=== PATIENT | male | born 1955 | race Caucasian/White ===

== ENCOUNTER 2018-05-05 18:07 | Observation (INO) | payer OTHER, SELFPAY ==
--- NOTE | 2018-05-05 | DI.MRI.S_ITS ---
PROCEDURE: MR STROKE Pre- and post-contrast brain MRI, non-contrast brain MR angiogram, pre- and postcontrast neck MR angiogram INDICATIONS: RLE extremity weakness / paresthesia, CVA r/o TECHNIQUE: Brain: Noncontrast axial T1 spin echo, axial T2 fast spin echo, sagittal and axial FLAIR, coronal T2 fast spin echo, axial gradient echo, axial diffusion and ADC through the brain. After the administration of contrast, axial 3D VIBE of the cranial vasculature and brain. Brain MRA: Non-contrast 3-D time of flight MR angiogram, with multiple cvapnot-jicxbehzp-woochxldib (MIP) reformats performed. Neck MRA: Axial and sagittal TruFISP through the neck. Coronal dynamic MR angiogram during administration of contrast in the arterial and venous phases, with 3-dimenstional otsvzgl-mympusahx-aenuejcyhf (MIP) reformats constructed from subtraction images. COMPARISON: None. FINDINGS: Image quality: Excellent. BRAIN: CSF spaces: Ventricles are normal in size and shape. Basal cisterns are patent. No extra-axial fluid collections. Brain: No intracranial bleeds or mass effects. Wylie-white matter interface is normal. Diffusion weighted images show no acute ischemic insults. Brainstem appears normal. Normal intravascular flow voids are present. No abnormal intracranial enhancement. Skull and face: Calvarial marrow signal is normal. Orbits appear normal. Sinuses: Sinuses and mastoids are clear except for minimal bilateral maxillary sinus mucosal thickening. BRAIN MR ANGIOGRAM: Anterior circulation: Intracranial internal carotid arteries are normal in size and enhancement. The flow within the paired anterior cerebral arteries is normal and symmetric. The flow within the middle cerebral arteries is normal and symmetric. The anterior communicating artery is seen. No stenoses, occlusions, or aneurysms. Posterior circulation: The visualized portions of the vertebral arteries demonstrate normal caliber, and join to form a normal appearing basilar artery. The flow within the posterior cerebral arteries is normal and symmetric. No stenoses, occlusions, or aneurysms. NECK MR ANGIOGRAM: Carotids: Great vessels demonstrate a conventional anatomy as they arise from the aortic arch. The origins of the common carotid arteries appear patent. The calibers and courses of both common carotid arteries are normal. The bifurcation regions appear normal bilaterally. The internal carotid arteries demonstrate normal course and caliber. Posterior circulation: The origins of the vertebral arteries appear patent. More superior portions of both vertebral arteries demonstrate normal course and caliber, and join to form a normal appearing basilar artery. Miscellaneous: Subclavian arteries appear patent. Pre-contrast images through the neck show no soft tissue abnormalities. IMPRESSION: BRAIN MRI: No acute ischemia. BRAIN MR ANGIOGRAM: Negative examination NECK MR ANGIOGRAM: Negative examination. No ICA stenosis. Dictated by: Navid Monroe M.D. on 05/06/2018 at 11:33 Approved by: Navid Monroe M.D. on 05/06/2018 at 11:41
[2018-05-05 18:24] VITALS: BP 131/76; PULSE 71; RESP 12; TEMP 36.8; O2SAT 95
--- NOTE | 2018-05-05 18:28 | DI.CT.S_ITS ---
PROCEDURE: CT HEAD/BRAIN WO CON INDICATIONS: right leg weakness x 2 days TECHNIQUE: Noncontrast 4.5 mm thick angled axial sections acquired from the foramen magnum to the vertex, with coronal and sagittal reformats. For radiation dose reduction, the following was used: automated exposure control, adjustment of mA and/or kV according to patient size. COMPARISON: None. FINDINGS: Image quality: Excellent. CSF spaces: Basal cisterns are patent. No extra-axial fluid collections. Ventricles are normal in size and shape. Brain: No midline shift. No intracranial masses or hemorrhage. Wylie-white matter interface is normal. Skull and face: Calvarium and visualized facial bones are intact, without suspicious lesions. Sinuses: Visualized sinuses and mastoids are clear. IMPRESSION: No acute disease, source of right leg weakness is not seen. Dictated by: Jose Veliz M.D. on 05/05/2018 at 19:18 Approved by: Jose Veliz M.D. on 05/05/2018 at 19:18
--- NOTE | 2018-05-05 18:49 | ED_ITS ---
HPI - Extremity Problem General Chief complaint: Extremity Problem,Nontraumatic Stated complaint: STATES NEEDS A ULTRASOUND Time Seen by Provider: 05/05/18 18:09 Source: patient Mode of arrival: ambulatory Limitations: no limitations History of Present Illness HPI Narrative: Patient is a 62-year-old male who presents with right leg numbness and weakness. He says it extends into his abdomen. He denies any back pain or injury. It started 2 days ago. 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 He started to notice some numbness in change in sensation in his right lower extremity only. He now is having some difficulty walking. He says the numbness extends into his abdomen is. No back pain no sciatic pain. He does have a history of lumbar fusion he says this feels nothing like that. He has no upper extremity symptoms or weakness. No speech difficulty or facial droop or other focal deficits. Related Data Home Medications Medication Instructions Recorded Confirmed No Known Home Medications 05/05/18 05/05/18 Review of Systems Review of Systems GENERAL: Denies chills, fatigue, malaise, fever, sweats, travel HEENT: Denies sinus pain, ear pain, sore throat, difficulty swallowing, neck pain RESPIRATORY: Denies dyspnea, cough, wheezing, hemoptysis, sputum. CARDIOVASCULAR: Denies chest pain, palpitations, orthopnea, edema GASTROINTESTINAL: Denies nausea, vomiting, abdominal pain, diarrhea, constipation, melena. : Denies dysuria, frequency, incontinence, hematuria, urinary retention, flank pain. MUSCULOSKELETAL: Denies weakness, joint pain, or bony pain SKIN: No rash, no erythema, no pruritus NEUROLOGIC: See HPI PSYCHIATRIC: No concerning psychosocial issues. 12 point review of systems is negative except for those stated above and HPI ROS Unobtainable: All systems reviewed & are unremarkable except as noted in HPI and below Constitutional Denies chills, Denies fever(s), Denies lethargy and Reports weakness ( right leg) Eyes Denies change in vision, Denies eye discharge, Denies irritation and Denies loss of vision ENT Ears, Nose, Mouth, and Throat: Denies change in voice, Denies neck pain and Denies sore throat Cardiovascular Denies dyspnea and Denies dyspnea on exertion Respiratory Denies cough, Denies dyspnea, Denies dyspnea on exertion and Denies wheezing Gastrointestinal Gastrointestinal: Denies abdominal pain, Denies change in bowel habits, Denies diarrhea, Denies nausea and Denies vomiting Genitourinary Denies hematuria, Denies flank pain, Denies urinary incontinence and Denies urinary urgency Musculoskeletal Denies neck pain, Reports numbness ( right leg) and Reports tingling ( right leg) Integumentary/Breasts Denies pruritus, Denies erythema, Denies rash and Denies wounds Neurologic Reports as per HPI, Denies loss of vision, Reports numbness ( right leg), Reports tingling ( right leg) and Reports weakness ( right leg) Allergic/Immunologic Denies wheezing [facility] Medical History Patient denies significant medical history (Acute) Surgical History History of lumbar fusion (Acute) Social History household members: significant other Smoking Status: Never smoker alcohol intake: current Social History household members: significant other Smoking Status: Never smoker alcohol intake: current Exam Initial Vital Signs Initial Vital Signs: Vital Signs Temperature 98.3 F 05/05/18 18:24 Pulse Rate 71 05/05/18 18:24 Respiratory Rate 12 05/05/18 18:24 Blood Pressure 131/76 05/05/18 18:24 Pulse Oximetry 95 05/05/18 18:24 GENERAL: overweight male alert and oriented x3 HEENT: Head atraumatic,EOMI, pupils reactive, face symmetric, neck is supple CARDIOVASCULAR: Regular rate and rhythm without murmurs, rubs or gallops. RESPIRATORY: Breath sounds equal bilaterally, no wheezes rales or rhonchi. ABDOMEN: Soft, nontender. Normoactive bowel sounds all 4 quadrants. No guarding or rebound. EXTREMITIES: Normal range of motion, no clubbing or edema. Neurovascularly intact. Strong distal pedal pulse foot is warm NEUROLOGICAL: Alert and oriented x4.Normal gait and speech. Cranial nerves II through XII grossly intact. Good gvmmef-tx-miwd, good ycoy-in-iyjy, strength equal bilaterally, no dysarthria or aphasia, decreased sensation on to light touch in right lower extremity and right abdomen, no visual changes, no facial droop right leg also noted to drip slowly but does not hit gurney SKIN: Warm, dry, no laceration, no petechiae, no rashes or lesions. Scores NIH Stroke Scale Level of Conciousness: Alert, keenly responsive Ask month/age: Answers both questions correctly. Open/close eyes, close hand: Performs both tasks correctly Best gaze horizontal: Normal Visual boyle: No visual loss Facial palsy: Normal symetrical movement Left arm drift: No drift for full 10 sec Right arm drift: No drift for full 10 sec Left leg drift: No drift for full 10 sec Right leg drift: Drifts down, not to bed Limb ataxia: Absent Sensory on face/arms/legs: Mild to moderate sensory loss, can tell touch Best language: No aphasia, normal Dysarthria: Normal Extinction or inattention: No abnormality Total NIH Stroke scale score: 2 Course Orders Ordered: ED Orders 05/05/18 18:28 CT head/brain wo con Stat EKG-12 Lead Stat 05/05/18 18:40 Complete Blood Count AUTO DIFF Stat Comprehensive Metabolic Panel Stat Partial Thromboplastin Time Stat Prothrombin Time INR Stat Troponin & CK Cardiac Panel Stat Discontinued Medications Aspirin (Aspirin Chew) 324 mg PO NOW ONE Stop: 05/05/18 19:59 Last Admin: 05/05/18 20:00 Dose: 324 mg Vital Signs - 8 hr 05/05/18 18:24 05/05/18 19:00 05/05/18 19:42 Temperature 98.3 F Pulse Rate 71 72 61 Respiratory Rate 12 17 15 Blood Pressure 131/76 Blood Pressure [Right Arm] 130/72 137/72 Pulse Oximetry 95 98 96 MDM - Extremity (Nontraumatic) Lab Data Result diagrams: 05/05/18 18:40 05/05/18 18:40 Lab Results 05/05/18 05/05/18 05/05/18 Range/Units 18:40 18:40 18:40 WBC 7.4 (4.5-11.0) X10^3/uL RBC 5.43 (4.5-5.9) X10^6/uL Hgb 16.2 (13.5-17.5) g/dL Hct 48.6 (41-53) % MCV 89.5 (80-100) fL MCH 29.9 (26-34) PG MCHC 33.4 (30-36) % RDW 13.2 (11.6-14.8) % Plt Count 182 (150-400) X10^3/uL Neut % (Auto) 62.0 (50-75) % Lymph % (Auto) 23.2 L (25-40) % [place] % (Auto) 10.5 (3-14) % Eos % (Auto) 3.7 (2-4) % Baso % (Auto) 0.6 (0-2) % Neut # (Auto) 4600 (4676-1949) /uL Lymph # (Auto) 1700 (1054-2106) /uL [place] # (Auto) 800 (0-900) /uL Eos # (Auto) 300 (0-450) /uL Baso # (Auto) 0 (0-100) /uL PT 11.5 (10.1-12.7) SECONDS INR 1.0 (0.9-1.3) APTT 36 (26.4-36.2) SECONDS Sodium 141 (137-145) mmol/L Potassium 4.1 (3.4-5.1) mmol/L Chloride 103 (98-107) mmol/L Carbon Dioxide 28 (22-32) mmol/L BUN 23 H (9-20) mg/dL Creatinine 1.00 (0.66-1.25) mg/dL Estimated GFR > 60.0 (>60) mL/min BUN/Creatinine Ratio 23.0 H (6-22) Glucose 107 (80-110) mg/dL Calcium 9.6 (8.4-10.2) mg/dL Total Bilirubin 0.7 (0.2-1.3) mg/dL AST 41 (17-59) IU/L ALT 43 (21-72) IU/L Alkaline Phosphatase 49 (38-126) U/L Total Creatine Kinase 243 H (55-170) U/L CK-MB (CK-2) 3.28 H (<2.37) ng/mL CK-MB (CK-2) Rel Index 1.3 L (1.5-5.0) % Troponin I < 0.012 (0.01-0.034) ng/mL Total Protein 7.9 (6.3-8.2) g/dL Albumin 4.5 (3.5-5.0) g/dL Globulin 3.4 (1.7-4.1) g/dL Albumin/Globulin Ratio 1.3 (1.0-2.8) Imaging Data CT scan - head: Radiologist's impression: PROCEDURE: CT HEAD/BRAIN WO CON INDICATIONS: right leg weakness x 2 days TECHNIQUE: Noncontrast 4.5 mm thick angled axial sections acquired from the foramen magnum to the vertex, with coronal and sagittal reformats. For radiation dose reduction, the following was used: automated exposure control, adjustment of mA and/or kV according to patient size. COMPARISON: None. FINDINGS: Image quality: Excellent. CSF spaces: Basal cisterns are patent. No extra-axial fluid collections. Ventricles are normal in size and shape. Brain: No midline shift. No intracranial masses or hemorrhage. Wylie-white matter interface is normal. Skull and face: Calvarium and visualized facial bones are intact, without suspicious lesions. Sinuses: Visualized sinuses and mastoids are clear. IMPRESSION: No acute disease, source of right leg weakness is not seen. Dictated by: Jose Veliz M.D. on 05/05/2018 at 19:18 ECG Data Attestation EKG: I personally reviewed and interpreted this ECG as follows: Prior ECG tracings: not available for review Interpretation: normal sinus rhythm rate 57 AR interval [address] changes T-wave inversion noted in lead 3 no priors to compare MDM Narrative Medical decision making narrative: patient does have decreased sensation to his right leg and abdomen it is also noted to be slightly weak. He is out of the window for tPA. Symptoms are concerning for anterior stroke. this is not seem to be sciatic pain or back pain. He also has abdominal change in sensation on the right side. He and his are concerned because he is due to leave for his [place] tomorrow evening for 2 weeks. He does have a PCP but lives on [facility], they do not have resources for follow-up. MRI is not available this evening. Eddie Gaines on-call accepts patient Discharge Plan Departure Patient Disposition: Admitted as Observation Clinical Impression: Cerebrovascular accident (CVA) involving anterior circulation Discharge Date/Time: 05/05/18 20:18 Interventions: ED Discharge Assessment Last Done: 05/05/18 20:17 Admit Date/Time: 05/05/18 20:05 Admit Provider: Constanza Gaines
[2018-05-05 18:56] LABS: Add Manual Diff / Slide Review NO; Basophils Absolute Auto 0 /uL (0-100); Basophils Percent Auto 0.6 % (0-2); Eosinophils Absolute Auto 300 /uL (0-450); Eosinophils Percent Auto 3.7 % (2-4); Hematocrit 48.6 % (41-53); Hemoglobin 16.2 g/dL (13.5-17.5); Lymphocytes Absolute Auto 1700 /uL (1100-4500); Lymphocytes Percent Auto 23.2 % (25-40); Mean Corpuscular HGB Conc 33.4 % (30-36); Mean Corpuscular Hemoglobin 29.9 PG (26-34); Mean Corpuscular Volume 89.5 fL (80-100); Monocytes Absolute Auto 800 /uL (0-900); Monocytes Percent Auto 10.5 % (3-14); Neutrophils Absolute Auto 4600 /uL (1500-7000); Platelet Count 182 X10^3/uL (150-400); Red Blood Cell Count 5.43 X10^6/uL (4.5-5.9); Red Cell Distribution Width 13.2 % (11.6-14.8); White Blood Cell Count 7.4 X10^3/uL (4.5-11.0)
[2018-05-05 19:00] VITALS: BP 130/72; PULSE 72; RESP 17; O2SAT 98
[2018-05-05 19:01] LABS: Prothrombin Time 11.5 SECONDS (10.1-12.7)
[2018-05-05 19:03] LABS: Alanine Aminotransferase 43 IU/L (21-72); Albumin 4.5 g/dL (3.5-5.0); Albumin Globulin Ratio 1.3 (1.0-2.8); Alkaline Phosphatase 49 U/L (38-126); Aspartate Aminotransferase 41 IU/L (17-59); Bilirubin Total 0.7 mg/dL (0.2-1.3); Blood Urea Nitrogen 23 mg/dL (9-20); Calcium 9.6 mg/dL (8.4-10.2); Carbon Dioxide 28 mmol/L (22-32); Chloride 103 mmol/L (98-107); Creatine Kinase 243 U/L (55-170); Estimated Glomerular Filt Rate > 60.0 mL/min (>60); Globulin 3.4 g/dL (1.7-4.1); Glucose 107 mg/dL (80-110); HEMOLYSIS 15 (0-50); PTT Partial Thromboplastin Tim 36 SECONDS (26.4-36.2); Potassium 4.1 mmol/L (3.4-5.1); Sodium 141 mmol/L (137-145); Total Protein 7.9 g/dL (6.3-8.2)
[2018-05-05 19:19] LABS: CKMB % Relative Index 1.3 % (1.5-5.0); Creatine Kinase MB 3.28 ng/mL (<2.37); Troponin I < 0.012 ng/mL (0.01-0.034)
[2018-05-05 19:42] VITALS: BP 137/72; PULSE 61; RESP 15; O2SAT 96
[2018-05-05] MEDS: ASPIRIN 81 MG TAB 324 MG PO (20:00)
[2018-05-05 21:00] VITALS: BMI 42.3
[2018-05-05 21:53] VITALS: BP 133/75; PULSE 57; RESP 17; TEMP 36.6; O2SAT 90
--- NOTE | 2018-05-05 22:15 | P.HP_ITS ---
History of Present Illness Chief complaint: STATES NEEDS A ULTRASOUND Narrative: The patient is a 62-year-old male with PMH of morbid obesity (BMI 42.8, s/p bariatric surgery), h/o elevated glucose w/o prior diagnosis of diabetes, YOGESH (poor CPAP adherence), and varicose veins. Patient presented to the ED 05/05/2018 with right lower extremity weakness and paresthesia. Onset of symptoms is sudden, initially noted 05/03/2018 at 2000. Paresthesia is noted to extend to the toes of the right LE. Associated symptoms include paresthesia in the area of right mid-abdomen, streak of erythema medial aspect of RLE and redness mid-abdomen. Initially patient did not notice diminished sensation in the abdomen (not clear if it was also present or a progression). Reports gait difficulty which are a result of not having sensation in the extremity; however, denies difficulty with balance. In the past week has been feeling more weak and fatigued; however, attributes this to 14 hour work days in the past week. Typically he does not work extended hours. Prior, during or post the event patient did not experience headache, change in vision, arm heaviness or paresthesia, chest pain, palpitations, dizziness, lightheadedness, syncopal events, peripheral edema, dyspnea (rest or w/ exertion), hemoptysis, abdominal pain, nausea, vomiting, or diarrhea. There has not been worsening numbness or increased weakness since onset of symptoms. Overall rates degree of paresthesia as 5-6/10. Denies overt pain in the affected area. Denies pain in the lower back and symptoms of radiculopathy. No exposure to wooded areas and denies finding ticks on any part of the body. Possibly spiders at home. It is worth noting that in January 2018 patient had a tooth infection, which resulted in tooth extraction. He was prescribed PCN 500 mg QID x10 days, however has taken minimal amount of the medication. Denies fever / chills. CVA risk factors: morbid obesity, YOGESH (non adherent w/ CPAP therapy), age, and elevated glucose w/o formal diagnosis of DM (significant FHx of diabetes). [employer] meds include ASA 81 mg QD and MTW, reports adherence. No specific exacerbating or remitting factors noted. Denies injury to the back, torso, or RLE. He has injured his LLE earlier this morning (05/05), kicking some item w/ notable left lower extremity superficial open wound. Known to have varicose veins, worse in LLE. Prior history (15 yrs ago) of infection in the LLE or bacteremia (not clear, patient has difficulty recalling details), which was notable for strep infection. Right LE shows a streak of erythema along right medial aspect of the extremity; however, no associated tenderness, swelling or warm. Newly developed redness mid-abdomen. No personal or family history of thrombosis. Patient has had a lap band surgery 1.5 yrs ago. No known complications. Band was last checked 6 months ago, at that time it was tightened. Overall loss of 50 lbs, regained 10lbs in the past 2-3 weeks. He is not experiencing abdominal pain, N/V, or food regurgitation. ED-Work Up EKG: SB (v-rate 57) LAB, 05/05/2018 at 1840 WBC 7.4 HGB 16.2 PLT 182 ; PT 11.5 INR 1 APTT 36 NA 141 K 4.1 CO 103 CO2 28 BUN 23 CR 1 GFR > 60 GLU 107 CA 9.6 Liver function WNL; CK 243, Trop < 0.012 CT HEAD w/o contrast: No midline shift. No intra-cranial masses or hemorrhage. Patient is scheduled to leave for [facility] from [facility] on 05/06/2018 at midnight. Requested discharge on 05/06/2018. Patient History Medical History Varicose veins of both lower extremities (Chronic) YOGESH (obstructive sleep apnea) (Chronic) Morbid obesity (Chronic) History of streptococcal infection (Resolved) Surgical History H/O laparoscopic adjustable gastric banding (Chronic) History of lumbar fusion (Inactive) Family History Mother Diabetes mellitus Father Diabetes mellitus Brother Colon cancer Social History household members: significant other Smoking Status: Never smoker alcohol intake: current Family & Social History Social History: household members , lives w/ . Prior Living Arrangements House Safety & Behavioral: Feels Safe in Current Yes Environment Been Physically Hurt or No Threatened By a Person Suicidal Ideation Description None Suicide Plan Description No Plan Tobacco & Substance use: Smoking Status Never smoker alcohol intake Current alcohol intake frequency 2-3 drinks weekly Substance Use Type does not use Meds Home Medications Medication Instructions Recorded Confirmed Type aspirin 81 mg PO DAILY 05/06/18 05/06/18 History multivitamin 1 tab PO DAILY 05/06/18 05/06/18 History Allergies Allergy/AdvReac Type Severity Reaction Status Date / Time No Known Drug Allergies Allergy Verified 05/06/18 00:52 Review of Systems Review of Systems All systems reviewed & are unremarkable except as noted in HPI and below Exam Vital Signs (past 8 hours): - 05/05/18 18:24 05/05/18 19:00 05/05/18 19:42 Temperature 98.3 F Pulse Rate 71 72 61 Respiratory Rate 12 17 15 Blood Pressure 131/76 Blood Pressure [Right Arm] 130/72 137/72 Pulse Oximetry 95 98 96 05/05/18 21:53 Temperature 97.8 F Pulse Rate 57 L Respiratory Rate 17 Blood Pressure 133/75 Blood Pressure [Right Arm] Pulse Oximetry 90 L Oxygen Delivery Method Room Air Narrative Exam Narrative: Constitutional: NAD, fair historian / elusive in his disclosure of medical history, BMI 42.8 Neurologic: AOx3, no facial asymmetry, no dysarthria, no aphasia, no neglect, no tremor, maukyx-yu-fcvt and yocj-ef-wjdo intact RLE mild drift, RLE mild weakness, sensation diminished downwards starting in right mid abdomen, right thigh, right calf, and right foot GCS 15, NIHSS 2... (right lower extremity drift, mild-moderate sensation) Head: NC, AT Eyes: PERRL, EOMI, Ears: external ears normal, no otorrhea Nose: external nose normal, no rhinorrhea or epistaxis Throat: MMM, oropharynx w/o exudate Neck: no masses, lymphadenopathy, or JVD Chest / Respiratory: equal chest rise, unlabored respiratory effort, no tachypnea, diminished bases, on room air Heart / CV: S1S2, no murmur Abdomen / GI: Central obesity, healed laparoscopic incisions right upper quadrant, palpable port mid abdomen, no abdominal tenderness Normal active bowel sounds, no overt abdominal distension, organomegaly difficult to palpate given obese abdominal contour; however, no overt masses Redness / erythema mid abdomen noted : no suprapubic tenderness, no CVA Peripheral / Vascular: warm to touch, DP and PT pulses palpable, pulse on RLE is weaker than in the LLE, Hyper pigmentation in the ankle of left lower extremity, hyperpigmentation in the glove stocking distribution pattern of left lower extremity Palpable varicose veins in left lower extremity Musc: full ROM of upper and lower extremity, strength equal BUE, RLE weakness Skin: Streak of erythema RLE as noted previously and mid abdomen, right toe w/ potential fungal infection Objective Labs Result Diagrams: 05/05/18 18:40 05/05/18 18:40 Labs: Laboratory Results - last 24 hr 05/05/18 05/05/18 05/05/18 18:40 18:40 18:40 WBC 7.4 RBC 5.43 Hgb 16.2 Hct 48.6 MCV 89.5 MCH 29.9 MCHC 33.4 RDW 13.2 Plt Count 182 Neut % (Auto) 62.0 Lymph % (Auto) 23.2 L [place] % (Auto) 10.5 Eos % (Auto) 3.7 Baso % (Auto) 0.6 Neut # (Auto) 4600 Lymph # (Auto) 1700 [place] # (Auto) 800 Eos # (Auto) 300 Baso # (Auto) 0 PT 11.5 INR 1.0 APTT 36 Sodium 141 Potassium 4.1 Chloride 103 Carbon Dioxide 28 BUN 23 H Creatinine 1.00 Estimated GFR > 60.0 BUN/Creatinine Ratio 23.0 H Glucose 107 Calcium 9.6 Total Bilirubin 0.7 AST 41 ALT 43 Alkaline Phosphatase 49 Total Creatine Kinase 243 H CK-MB (CK-2) 3.28 H CK-MB (CK-2) Rel Index 1.3 L Troponin I < 0.012 Total Protein 7.9 Albumin 4.5 Globulin 3.4 Albumin/Globulin Ratio 1.3 Assessment & Plan Plan: Unilateral, right lower extremity weakness and paresthesia, acute, present on admission Patient is being admitted for a suspected CVA (posterior ?) Associated sx: phlebitis RLE, right mid-abdomen paresthesia and area localized erythema (no rashed overt rash), tooth infection January 2018, diminished pedal pulse RLE, fatigue and weakness x1 week DDx: thrombophlebitis, cellulitis, late gastric band complications, neuropathy / nerve entrapment, Guillain-[place] - Initiate stroke protocol / pathway - Additional imaging per MR Stroke Protocol, urgent fro 05/06/2018 - Echo w/ bubble study to assess PFO / cardiac shunting - RLE venous u/s to r/o DVT - ASA 324 mg received in ED, start on ASA 81 mg daily starting 05/06/2018 - Risk Stratify: A1C, FLP (goal LDL < 70), start on statin tonight (atorvastatin 40 mg QHS) - Additional and / or AM Labs: CBC, BMP, CK level, UA, and blood cx - IVF @ 80 ml/hr x1L, then re-evaluate need for further hydration - NIHSS on presentation to unit, then QShift until discontinued - Neuro checks per stroke protocol - Telemetry monitoring - Supplemental O2, titrate accordingly to keep SpO2 > 94% - NPO, bedside swallow eval, may advance diet if patient passes bedside swallow - Consult PT, OT - Consult case management, re: d/c planning, consider rehab placement - Stroke education - DVT prophylaxis: Heparin SQ Phlebitis RLE r/o suspected DVT - RLE venous U/S Sinus Bradycardia, present on admission, asymptomatic - Telemetry monitoring Morbid Obesity, BMI 42.3 Quality VTE Deep Vein Thrombosis/Pulmonary Embolism Present on Admission: No
--- NOTE | 2018-05-05 23:29 | PC.NURSE ---
Evening Shift Note- Patient mostly sleeping. Patient arouses easily and can answer questions appropriatly. Patient states this is just not him, hes getting worse not better. Talked with Dr. Houston and recieved new orders for a CXR and blood gases. Blood gas showed cO2 of 67 which is elevated from yesterdays of 51. rechecked cO2 at [address] Houston orders. 1999 cO2 increased to 72. Patient transfer to ICU for bipap per dr houston orders.
[2018-05-06] MEDS: ATORVASTATIN 20 MG TABLET 40 MG PO (00:14)
[2018-05-06] MEDS: SODIUM CHLORIDE 0.9% 1,000 ML 80 ML IV (00:14)
[2018-05-06 00:46] VITALS: BP 123/63; PULSE 56; RESP 16; TEMP 36.3
[2018-05-06 04:53] LABS: Add Manual Diff / Slide Review NO; Basophils Absolute Auto 0 /uL (0-100); Basophils Percent Auto 0.3 % (0-2); Blood Urea Nitrogen 18 mg/dL (9-20); Calcium 8.9 mg/dL (8.4-10.2); Carbon Dioxide 27 mmol/L (22-32); Chloride 103 mmol/L (98-107); Creatine Kinase 172 U/L (55-170); Eosinophils Absolute Auto 300 /uL (0-450); Eosinophils Percent Auto 4.3 % (2-4); Estimated Glomerular Filt Rate > 60.0 mL/min (>60); Glucose 112 mg/dL (80-110); HEMOLYSIS < 15 (0-50); Hematocrit 46.5 % (41-53); Hemoglobin 15.7 g/dL (13.5-17.5); Lymphocytes Absolute Auto 2000 /uL (1100-4500); Lymphocytes Percent Auto 33.9 % (25-40); Mean Corpuscular HGB Conc 33.8 % (30-36); Mean Corpuscular Hemoglobin 30.2 PG (26-34); Mean Corpuscular Volume 89.2 fL (80-100); Monocytes Absolute Auto 700 /uL (0-900); Monocytes Percent Auto 11.5 % (3-14); Neutrophils Absolute Auto 3000 /uL (1500-7000); Platelet Count 159 X10^3/uL (150-400); Potassium 3.6 mmol/L (3.4-5.1); Red Blood Cell Count 5.21 X10^6/uL (4.5-5.9); Red Cell Distribution Width 13.1 % (11.6-14.8); Sodium 139 mmol/L (137-145)
--- NOTE | 2018-05-06 05:00 | DI.ECHO.S_ITS ---
[facility] +---------+ : : [address] : : : : [id number] : : : : Phone: [phone] Echocardiogram Report + + :Name: MAGGIE SALDANA Study Date: 05/06/2018 Height: 72 in : :[facility] Weight: 315 lb : : Gender: Male BSA: 2.6 m2 : :: 1955 Age: 62 yrs BP: 125/78 mmHg: :Reason For Study: CVA : : Performed By: Lily Valenzuela : :Referring: LATOYA STEWART : + + Interpretation Summary Borderline concentric left ventricular hypertrophy with ejection fraction 60- 65%. Borderline left atrial enlargement. No signifcant valvular abnormality. The ascending aorta is at the upper limits of normal in size. Injection of contrast documented no interatrial shunt. Procedure: A two-dimensional transthoracic echocardiogram with color flow and Doppler was performed. The study quality was technically adequate. There is no prior echocardiogram noted for this patient. The patient was in normal sinus rhythm during the exam. Left Ventricle: The left ventricle is normal in size. There is borderline concentric left ventricular hypertrophy. The ejection fraction is estimated to be 60-65%. There are no focal wall motion abnormalities. Diastolic parameters suggest probable normal left ventricular diastolic function and normal filling pressures. Right Ventricle: The right ventricle grossly appears normal in size with probable normal systolic function. Atria: Borderline left atrial enlargement. Right atrium not well visualized. Injection of contrast documented no interatrial shunt. Mitral Valve: The mitral valve leaflets appear borderline thickened, but open well. There is slight calcification extending into the subvalvular apparatus. There is trace mitral regurgitation. Aortic Valve: The aortic valve opens well. No aortic regurgitation is present. Tricuspid Valve: The tricuspid valve is normal in structure and function. There is trace tricuspid regurgitation. The right ventricular systolic pressure is estimated to be at least 20 mmHg based on an estimated right atrial pressure of 3 mm Hg. Pulmonic Valve: The pulmonic valve is normal in structure and function. There is trace pulmonic regurgitation. Great Vessels: The aortic root is normal size. The ascending aorta is at the upper limits of normal in size. The aortic arch is normal in size. The IVC is of normal diameter and collapses greater than 50% with a sniff. This suggests a low right atrial pressure of 3 mm Hg. Pericardium/ Pleura There is no pericardial effusion. There is no pleural effusion. MMode/2D Measurements & Calculations LVIDd: 4.7 cm Ao root diam: 3.5 cm LVIDs: 3.0 cm Aortic Jxn: 2.8 cm FS: 36.4 % asc Aorta Diam: 3.7 cm EPSS: 0.46 cm Ao Arch Diam (Prox Trans): 2.5 cm IVSd: 1.0 cm LVPWd: 1.0 cm LV cardona. diameter/BSA (cm/m^2): 1.8 LV sys. diameter/BSA (cm/m^2): 1.2 LA dimension: 4.2 cm RA long axis: 5.5 cm LA A2 area: 28.0 cm2 RA area: 18.3 cm2 LA A4 area: 28.1 cm2 RA vol: 51.6 ml LA length (vol): 6.7 cm RA : 20.0 ml/m2 LA vol: 99.0 ml IVC diam: 1.9 cm LA vol index: 38.3 ml/m2 Doppler Measurements & Calculations Ao V2 max: 123.3 cm/sec MV E max anderson: 61.5 cm/sec Ao V2 mean: 81.0 cm/sec MV A max anderson: 58.4 cm/sec Ao max P.1 mmHg MV E/A: 1.1 Ao mean P.1 mmHg Med Peak E' Anderson: 5.6 cm/sec Ao V2 VTI: 27.8 cm E/E' med: 11.0 Lat Peak E' Anderson: 6.9 cm/sec E/E' lat: 8.9 E/e' average: 9.9 MV dec time: 0.19 sec TR max anderson: 207.9 cm/sec TR max P.3 mmHg PA V2 max: 65.4 cm/sec PA V2 mean: 45.0 cm/sec PA mean P.94 mmHg PA Accel Time: 0.16 sec Electronically signed by: Bre Hauser on Reading Physician:05/06/2018 03:53 PM
[2018-05-06 05:06] LABS: Hemoglobin A1C% w Est Avg Glu 6.3 % (4.0-6.0)
[2018-05-06 06:34] VITALS: BP 109/67; PULSE 53; RESP 16; TEMP 36.8; O2SAT 98
[2018-05-06 08:00] VITALS: BP 125/78; PULSE 61; RESP 18; TEMP 36.2; O2SAT 100
[2018-05-06] MEDS: ASPIRIN EC 81 MG TABLET PO (09:00)
[2018-05-06] MEDS: HEPARIN 5,000 UNIT/ML VIAL 5000 UNIT SUBCUT (09:00)
--- NOTE | 2018-05-06 09:46 | PT.IIE ---
Surgical History (Last Updated 05/06/18 @ 01:34 by CARIDAD Lara) H/O laparoscopic adjustable gastric banding (Chronic) History of lumbar fusion (Inactive) Medical History (Last Updated 05/06/18 @ 01:35 by CARIDAD Lara) Varicose veins of both lower extremities (Chronic) YOGESH (obstructive sleep apnea) (Chronic) Morbid obesity (Chronic) History of streptococcal infection (Resolved) Physical Therapy Inpatient Evaluation/Re-Eval M1 PT/OT-IP Prior Functional Status Start: 05/06/18 12:19 Freq: NEEDED Status: Active Protocol: Document 05/06/18 09:46 AB (Rec: 05/06/18 12:41 AB [id number]) Medical Review Prior Functional Status Medical History Reviewed Yes Communication able to make need known Mobility and Gait pt stated that he is independent with all mobilities and ambulation without AD Social History Household Members significant other Living Arrangements House Number of Floors (Floors) One Floor Number of Stairs To Enter/Railing? 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 PT-IP Current Condition Start: 05/06/18 12:19 Freq: NEEDED Status: Active Protocol: Document 05/06/18 09:46 AB (Rec: 05/06/18 12:41 AB [id number]) Physical Therapy Current Condition Current Condition Evaluation Date 05/06/18 Treatment Diagnosis RLE weakness; difficulty in walking Onset Date 05/05/18 M3 PT-IP Subjective Start: 05/06/18 12:19 Freq: NEEDED Status: Active Protocol: Document 05/06/18 09:46 AB (Rec: 05/06/18 12:41 AB [id number]) Subjective Physical Therapy Visit Type Type Initial Evaluation Visit Start Time 09:46 Visit Stop Time 10:12 Total Visit Minutes 26 Number of CYBER SECURITY ARCHITECT Visits 0 Physical Therapy Visit Comments Patient Comments pt agreeable to do PT Therapy Pain Assessment Pain Present Pain Present Denied Pain M4 PT-IP Mobility and Gait Start: 05/06/18 12:19 Freq: NEEDED Status: Active Protocol: Document 05/06/18 09:46 AB (Rec: 05/06/18 12:41 AB [id number]) PT-Bed Mobility Assessment Supine to Sit Supine to Sit Standby Assistance PT-Transfer Assessment Sit to and From Stand Sit to and from Stand Contact Guard Assistance Equipment Transfer Assistive Device None Gait Belt Orthotic/Prosthetic Devices or Brace: No Gait Assessment Gait Gait Assistance Required: Contact Guard Assist Minimum Assistance Distance (Feet) 20 Able to Maintain Weight Bearing Status Yes During Gait Assistive Devices Assistive Device None Gait Belt Straight Cane Orthotic/Prosthetic Devices or Brace: No Gait Deviations General Gait Pattern Antalgic Decreased Stride Length Decreased Feet Clearance Factors Limiting Gait Function Factors Limiting Gait Function Decreased Sensation Decreased Strength Poor Balance Comments Gait Comments pt initially ambulated without AD and requiring CGA to min A ~ 20 ft. pt presents with unsteady antalgic gait. pt stated that it is because he cannot feel his RLE much. assessed ambulation using SPC and pt completed ~ 20 ft CGA. pt more stable with SPC but continues to have antalgic gait. PT-Balance Assessment Sitting Balance and Reactions Static Sitting Balance Ability Good Dynamic Sitting Balance Ability Good Standing Balance and Reactions Static Standing Balance Ability Fair Dynamic Standing Balance Ability Fair Device Used SPC M5 PT-IP Objective Assessments Start: 05/06/18 12:19 Freq: NEEDED Status: Active Protocol: Document 05/06/18 09:46 AB (Rec: 05/06/18 12:41 AB [id number]) Orientation Orientation/Cognition Level of Alertness Alert Orientation Name Age Birthday Month Date Year Day of Week Place Situation Language Function Ability No Deficits Noted Safety Awareness Understands Safety Issues Memory Description No Deficits Noted Gross Range of Motion Lower Extremity ROM Assessment Within Functional Limits Strength Lower Extremity Strength Assessment Within Functional Limits Knee 4+/5 Coordination Assessment Gross Coordination Gross Coordination WNL Sensation Assessment Sensation Gross Sensation Right LE Impaired Comments Sensation Comments assessed LE sensation, pt has (+) RLE sensation and able to state location during light touch test but pt stated that he can only feel ~ 80% on RLE Muscle Tone Muscle Tone WNL Yes M6 PT-IP Treatment Start: 05/06/18 12:19 Freq: NEEDED Status: Active Protocol: Document 05/06/18 09:46 AB (Rec: 05/06/18 12:41 AB [id number]) Physical Therapy Treatment Education Education Provided Safety M7 PT-IP Assessment and Plan Start: 05/06/18 12:19 Freq: NEEDED Status: Active Protocol: Document 05/06/18 09:46 AB (Rec: 05/06/18 12:41 AB [id number]) PT Summary Assessment and Plan Potential Rehabilitation Potential Good Status of Condition at Evaluation Evolving Summary Impairments Balance Sensation Bed Mobility Transfers Gait Activity Tolerance Assessment Summary pt requiring CGA to min A with ambulation without AD. d/c plan depending on progress but pt has spouse to assist him at home. Goals Bed Mobility Goal Independent Transfer Goal Independent Cane Gait Goal Independent Cane Gait Distance 300 Other Goals up/down 4 steps using bilateral rails ambulation without AD SBA 300ft Days to Meet Goals 3 Frequency of Treatment Frequency Of Treatment Once a Day Treatment Plan Physical Therapy Treatment Plan Bed Mobility Training Transfer Training Gait Training Therapeutic Exercise Balance Retraining Discharge Planning Neuromuscular Re-ed Coordination Retraining Manual Therapy Recommendations To Nursing Amount of Assist Needed 1 Person Assist Discharge Recommendations PT Discharge Recommendations Home with Assistance
--- NOTE | 2018-05-06 11:38 | CM.IDA ---
Discharge Planning/Care Management CM Discharge Assessment Start: 05/06/18 11:32 Freq: Status: Active Protocol: Document 05/06/18 11:32 CELSA (Rec: 05/06/18 11:38 CELSA [id number]) Discharge Planning Assessment Assigned Case Maker ANNA Gimenez DPOA/Assigned Designee Name Marilee Jimenez, spouse Contact Information [phone] Advance Directives? No History Provided By Patient Prior Living Arrangements House Household Members significant other Type of transporation used prior to Drives own vehicle admit Independent with ADL's Yes Is patient alert and oriented? Yes Barriers to Discharge No Comment Pt under obs for suspected CVA / phlebitis RLE. Payer: Andrew Met w/pt this morning, explained SW role. Pt is waiting to see Dr Houston for further information on medical POC. 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 Lives on [address] w/ spouse, pt says she's a good caregiver. Pt anticipates no DC needs. He is disappointed since he and had a trip to [facility] scheduled for two weeks which will need to be delayed/ cancelled. 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 ANNA Calvert Discharge Plan Home Transportation Arrangement Family Referrals Initiated None needed Whiteboard Updated in Patient Room with Yes name and ext. # of Case Maker Review Status In Process
[2018-05-06 12:47] LABS: Bacteria Urine None Seen; RBC Urine None Seen (0-5/HPF)
[2018-05-06 12:49] VITALS: BP 139/95; PULSE 63; RESP 18; TEMP 36.6; O2SAT 99
[2018-05-06 12:49] LABS: Appearance Urine UA CLEAR; Bilirubin Urine UA NEGATIVE (NEGATIVE); Color Urine UA YELLOW; Glucose Urine UA NEGATIVE (Negative); Ketones Urine UA NEGATIVE (NEGATIVE); Leukocyte Esterase Urine UA NEGATIVE (NEGATIVE); Nitrite Urine UA NEGATIVE (Negative); Occult Blood Urine UA NEGATIVE (Negative); Protein Urine UA NEGATIVE (Negative); Urobilinogen Urine UA 0.2 E.U./dL (0.2)
[2018-05-06 13:00] LABS: Culture Indicated Urine Cult Not Indicated; Squamous Epithelial Cell Urine 0-1 /HPF; WBC Urine 0-1/HPF (0-5/HPF)
--- NOTE | 2018-05-06 13:10 | PM.DS.1 ---
History of Present Illness Chief complaint: STATES NEEDS A ULTRASOUND Narrative: The patient is a 62-year-old male with PMH of morbid obesity (BMI 42.8, s/p bariatric surgery), h/o elevated glucose w/o prior diagnosis of diabetes, OYGESH (poor CPAP adherence), and varicose veins. Patient presented to the ED 05/05/2018 with right lower extremity weakness and paresthesia. Onset of symptoms is sudden, initially noted 05/03/2018 at 2000. Paresthesia is noted to extend to the toes of the right LE. Associated symptoms include paresthesia in the area of right mid-abdomen, streak of erythema medial aspect of RLE and redness mid-abdomen. Initially patient did not notice diminished sensation in the abdomen (not clear if it was also present or a progression). Reports gait difficulty which are a result of not having sensation in the extremity; however, denies difficulty with balance. In the past week has been feeling more weak and fatigued; however, attributes this to 14 hour work days in the past week. Typically he does not work extended hours. Prior, during or post the event patient did not experience headache, change in vision, arm heaviness or paresthesia, chest pain, palpitations, dizziness, lightheadedness, syncopal events, peripheral edema, dyspnea (rest or w/ exertion), hemoptysis, abdominal pain, nausea, vomiting, or diarrhea. There has not been worsening numbness or increased weakness since onset of symptoms. Overall rates degree of paresthesia as 5-6/10. Denies overt pain in the affected area. Denies pain in the lower back and symptoms of radiculopathy. No exposure to wooded areas and denies finding ticks on any part of the body. Possibly spiders at home. It is worth noting that in January 2018 patient had a tooth infection, which resulted in tooth extraction. He was prescribed PCN 500 mg QID x10 days, however has taken minimal amount of the medication. Denies fever / chills. CVA risk factors: morbid obesity, YOGESH (non adherent w/ CPAP therapy), age, and elevated glucose w/o formal diagnosis of DM (significant FHx of diabetes). 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 No specific exacerbating or remitting factors noted. Denies injury to the back, torso, or RLE. He has injured his LLE earlier this morning (05/05), kicking some item w/ notable left lower extremity superficial open wound. Known to have varicose veins, worse in LLE. Prior history (15 yrs ago) of infection in the LLE or bacteremia (not clear, patient has difficulty recalling details), which was notable for strep infection. Right LE shows a streak of erythema along right medial aspect of the extremity; however, no associated tenderness, swelling or warm. Newly developed redness mid-abdomen. No personal or family history of thrombosis. Patient has had a lap band surgery 1.5 yrs ago. No known complications. Band was last checked 6 months ago, at that time it was tightened. Overall loss of 50 lbs, regained 10lbs in the past 2-3 weeks. He is not experiencing abdominal pain, N/V, or food regurgitation. Discharge Providers Date of admission: 05/05/18 20:05 Primary care physician: Jean Rincon MD Consults: 05/05/18 21:37 Consult to Discharge Planning Routine Comment: Consult to Occupational Therapy Evaluate & Treat Comment: RLE weakness, suspected CVA, evaluate for ADLs Physician Instructions: Evaluate and treat Consult to Physical Therapy Evaluate & Treat Comment: RLE weakness, suspected CVA Physician Instructions: Evaluate and Treat Discharge provider: Alberto Houston MD Discharge Date: 05/06/18 Summary Discharge Diagnosis: 1. Right lower extremity and abdominal radiculopathy Procedures: 1. MR stroke: BRAIN MRI: No acute ischemia. BRAIN MR ANGIOGRAM: Negative examination NECK MR ANGIOGRAM: Negative examination. No ICA stenosis. 2. Transthoracic echo: Report pending Hospital Course: Patient admitted due to concern of TIA or stroke with 3 day history of numbness in his right lower extremity extending up into the right side of the abdomen. There is no pain or subjective weakness associated with this. All his blood work in vitals look good. He has been afebrile. 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 Workup at [facility] included brain MR stroke protocol which was normal, without evidence of acute ischemia or any arterial narrowing in brain or neck. Telemetry was normal. A transthoracic echo was done and report pending at time of discharge. He will follow up with PCP on echo report. There was some initial concern of phlebitis in his right leg. On exam this morning the leg is not swollen, nor is there any redness, or tenderness, or inflamed vein. Discussed with patient likely etiology is due to irritation of spinal nerves causing some painless radiculopathy. He has not had any concerning signs or symptoms such as loss of bowel or bladder control, fever, weakness. Lower extremity reflexes are not hyper reflexive to suggest cord issue. Again no fevers to suggest spinal infection. Offered patient to get spinal MRI for further elucidation but he feels the numbness has already improved since last night and comfortable waiting on further diagnostic workup. Patient is flying to [facility] tomorrow and we discussed potential of the long plane ride exacerbating the symptoms or possibly symptoms getting worse during his vacation. Understands to seek immediate medical attention for any fever, loss of bowel or bladder control, or acute weakness. Status at Discharge Functional status at discharge: independent ambulation Exam Vital Signs (past 8 hours): - 05/06/18 06:34 05/06/18 08:00 05/06/18 12:49 Temperature 98.3 F 97.1 F L 97.8 F Pulse Rate 53 L 61 63 Respiratory Rate 16 18 18 Blood Pressure 109/67 125/78 139/95 H Pulse Oximetry 98 100 99 Oxygen Delivery Method Room Air Objective Labs Result Diagrams: 05/06/18 04:25 05/06/18 04:25 Labs: Laboratory Results - last 24 hr 05/05/18 05/05/18 05/05/18 18:40 18:40 18:40 WBC 7.4 RBC 5.43 Hgb 16.2 Hct 48.6 MCV 89.5 MCH 29.9 MCHC 33.4 RDW 13.2 Plt Count 182 Neut % (Auto) 62.0 Lymph % (Auto) 23.2 L Blaine % (Auto) 10.5 Eos % (Auto) 3.7 Baso % (Auto) 0.6 Neut # (Auto) 4600 Lymph # (Auto) 1700 Blaine # (Auto) 800 Eos # (Auto) 300 Baso # (Auto) 0 PT 11.5 INR 1.0 APTT 36 Sodium 141 Potassium 4.1 Chloride 103 Carbon Dioxide 28 BUN 23 H Creatinine 1.00 Estimated GFR > 60.0 BUN/Creatinine Ratio 23.0 H Glucose 107 Hemoglobin A1c Calcium 9.6 Total Bilirubin 0.7 AST 41 ALT 43 Alkaline Phosphatase 49 Total Creatine Kinase 243 H CK-MB (CK-2) 3.28 H CK-MB (CK-2) Rel Index 1.3 L Troponin I < 0.012 Total Protein 7.9 Albumin 4.5 Globulin 3.4 Albumin/Globulin Ratio 1.3 Urine Color Urine Appearance Urine pH Ur Specific Lucama Urine Protein Urine Glucose (UA) Urine Ketones Urine Occult Blood Urine Nitrate Urine Bilirubin Urine Urobilinogen Ur Leukocyte Esterase Urine RBC Urine WBC Ur Squamous Epith Cells Urine Bacteria Ur Culture Indicated? 05/06/18 05/06/18 05/06/18 04:25 04:25 04:25 WBC 6.0 RBC 5.21 Hgb 15.7 Hct 46.5 MCV 89.2 MCH 30.2 MCHC 33.8 RDW 13.1 Plt Count 159 Neut % (Auto) 50.0 Lymph % (Auto) 33.9 Blaine % (Auto) 11.5 Eos % (Auto) 4.3 H Baso % (Auto) 0.3 Neut # (Auto) 3000 Lymph # (Auto) 2000 Blaine # (Auto) 700 Eos # (Auto) 300 Baso # (Auto) 0 PT INR APTT Sodium 139 Potassium 3.6 Chloride 103 Carbon Dioxide 27 BUN 18 Creatinine 0.90 Estimated GFR > 60.0 BUN/Creatinine Ratio 20.0 Glucose 112 H Hemoglobin A1c 6.3 H Calcium 8.9 Total Bilirubin AST ALT Alkaline Phosphatase Total Creatine Kinase 172 H CK-MB (CK-2) CK-MB (CK-2) Rel Index Troponin I Total Protein Albumin Globulin Albumin/Globulin Ratio Urine Color Urine Appearance Urine pH Ur Specific Lucama Urine Protein Urine Glucose (UA) Urine Ketones Urine Occult Blood Urine Nitrate Urine Bilirubin Urine Urobilinogen Ur Leukocyte Esterase Urine RBC Urine WBC Ur Squamous Epith Cells Urine Bacteria Ur Culture Indicated? 05/06/18 12:45 WBC RBC Hgb Hct MCV MCH MCHC RDW Plt Count Neut % (Auto) Lymph % (Auto) Blaine % (Auto) Eos % (Auto) Baso % (Auto) Neut # (Auto) Lymph # (Auto) Blaine # (Auto) Eos # (Auto) Baso # (Auto) PT INR APTT Sodium Potassium Chloride Carbon Dioxide BUN Creatinine Estimated GFR BUN/Creatinine Ratio Glucose Hemoglobin A1c Calcium Total Bilirubin AST ALT Alkaline Phosphatase Total Creatine Kinase CK-MB (CK-2) CK-MB (CK-2) Rel Index Troponin I Total Protein Albumin Globulin Albumin/Globulin Ratio Urine Color Yellow Urine Appearance Clear Urine pH 7.0 Ur Specific Lucama 1.020 Urine Protein Negative Urine Glucose (UA) Negative Urine Ketones Negative Urine Occult Blood Negative Urine Nitrate Negative Urine Bilirubin Negative Urine Urobilinogen 0.2 Ur Leukocyte Esterase Negative Urine RBC None seen Urine WBC 0-1/hpf Ur Squamous Epith Cells 0-1 /hpf Urine Bacteria None seen Ur Culture Indicated? Cult not indicated Discharge Plan Discharge Plan Patient Disposition: Home Discharge Med Rec/Prescriptions Prescriptions: Continued aspirin 81 mg Tablet,Chewable 81 mg PO DAILY RF: 0 multivitamin Tablet 1 tab PO DAILY RF: 0 Follow up/Referrals: Jean Rincon MD [Primary Care Provider] - Provider Discharge Instructions Diet: Diet as Tolerated Discharge Data Primary Care Provider: Jean Rincon Attending Provider: Constanza Gaines Admit Date/Time: 05/05/18 20:05 Quality VTE Deep Vein Thrombosis/Pulmonary Embolism Present on Admission: No
--- NOTE | 2018-05-06 13:19 | P.DS_ITS ---
History of Present Illness Chief complaint: STATES NEEDS A ULTRASOUND Narrative: The patient is a 62-year-old male with PMH of morbid obesity (BMI 42.8, s/p bariatric surgery), h/o elevated glucose w/o prior diagnosis of diabetes, YOGESH (poor CPAP adherence), and varicose veins. Patient presented to the ED 05/05/2018 with right lower extremity weakness and paresthesia. Onset of symptoms is sudden, initially noted 05/03/2018 at 2000. Paresthesia is noted to extend to the toes of the right LE. Associated symptoms include paresthesia in the area of right mid-abdomen, streak of erythema medial aspect of RLE and redness mid-abdomen. Initially patient did not notice diminished sensation in the abdomen (not clear if it was also present or a progression). Reports gait difficulty which are a result of not having sensation in the extremity; however, denies difficulty with balance. In the past week has been feeling more weak and fatigued; however, attributes this to 14 hour work days in the past week. Typically he does not work extended hours. Prior, during or post the event patient did not experience headache, change in vision, arm heaviness or paresthesia, chest pain, palpitations, dizziness, lightheadedness, syncopal events, peripheral edema, dyspnea (rest or w/ exertion), hemoptysis, abdominal pain, nausea, vomiting, or diarrhea. There has not been worsening numbness or increased weakness since onset of symptoms. Overall rates degree of paresthesia as 5-6/10. Denies overt pain in the affected area. Denies pain in the lower back and symptoms of radiculopathy. No exposure to wooded areas and denies finding ticks on any part of the body. Possibly spiders at home. It is worth noting that in January 2018 patient had a tooth infection, which resulted in tooth extraction. He was prescribed PCN 500 mg QID x10 days, however has taken minimal amount of the medication. Denies fever / chills. CVA risk factors: morbid obesity, YOGESH (non adherent w/ CPAP therapy), age, and elevated glucose w/o formal diagnosis of DM (significant FHx of diabetes). [employer] meds include ASA 81 mg QD and MTW, reports adherence. No specific exacerbating or remitting factors noted. Denies injury to the back, torso, or RLE. He has injured his LLE earlier this morning (05/05), kicking some item w/ notable left lower extremity superficial open wound. Known to have varicose veins, worse in LLE. Prior history (15 yrs ago) of infection in the LLE or bacteremia (not clear, patient has difficulty recalling details), which was notable for strep infection. Right LE shows a streak of erythema along right medial aspect of the extremity; however, no associated tenderness, swelling or warm. Newly developed redness mid-abdomen. No personal or family history of thrombosis. Patient has had a lap band surgery 1.5 yrs ago. No known complications. Band was last checked 6 months ago, at that time it was tightened. Overall loss of 50 lbs, regained 10lbs in the past 2-3 weeks. He is not experiencing abdominal pain, N/V, or food regurgitation. Discharge Providers Date of admission: 05/05/18 20:05 Primary care physician: Jean Rincon MD Consults: 05/05/18 21:37 Consult to Discharge Planning Routine Comment: Consult to Occupational Therapy Evaluate & Treat Comment: RLE weakness, suspected CVA, evaluate for ADLs Physician Instructions: Evaluate and treat Consult to Physical Therapy Evaluate & Treat Comment: RLE weakness, suspected CVA Physician Instructions: Evaluate and Treat Discharge provider: Alberto Houston MD Discharge Date: 05/06/18 Summary Discharge Diagnosis: 1. Right lower extremity and abdominal radiculopathy Procedures: 1. MR stroke: BRAIN MRI: No acute ischemia. BRAIN MR ANGIOGRAM: Negative examination NECK MR ANGIOGRAM: Negative examination. No ICA stenosis. 2. Transthoracic echo: Report pending Hospital Course: Patient admitted due to concern of TIA or stroke with 3 day history of numbness in his right lower extremity extending up into the right side of the abdomen. There is no pain or subjective weakness associated with this. All his blood work in vitals look good. He has been afebrile. 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 Workup at [facility] included brain MR stroke protocol which was normal, without evidence of acute ischemia or any arterial narrowing in brain or neck. Telemetry was normal. A transthoracic echo was done and report pending at time of discharge. He will follow up with PCP on echo report. There was some initial concern of phlebitis in his right leg. On exam this morning the leg is not swollen, nor is there any redness, or tenderness, or inflamed vein. Discussed with patient likely etiology is due to irritation of spinal nerves causing some painless radiculopathy. He has not had any con cerning signs or symptoms such as loss of bowel or bladder control, fever, weakness. Lower extremity reflexes are not hyper reflexive to suggest cord issue. Again no fevers to suggest spinal infection. Offered patient to get spinal MRI for further elucidation but he feels the numbness has already improved since last night and comfortable waiting on further diagnostic workup. Patient is flying to [facility] tomorrow and we discussed potential of the long plane ride exacerbating the symptoms or possibly symptoms getting worse during his vacation. Understands to seek immediate medical attention for any fever, loss of bowel or bladder control, or acute weakness. Status at Discharge Functional status at discharge: independent ambulation Exam Vital Signs (past 8 hours): - 05/06/18 06:34 05/06/18 08:00 05/06/18 12:49 Temperature 98.3 F 97.1 F L 97.8 F Pulse Rate 53 L 61 63 Respiratory Rate 16 18 18 Blood Pressure 109/67 125/78 139/95 H Pulse Oximetry 98 100 99 Oxygen Delivery Method Room Air Objective Labs Result Diagrams: 05/06/18 04:25 05/06/18 04:25 Labs: Laboratory Results - last 24 hr 05/05/18 05/05/18 05/05/18 18:40 18:40 18:40 WBC 7.4 RBC 5.43 Hgb 16.2 Hct 48.6 MCV 89.5 MCH 29.9 MCHC 33.4 RDW 13.2 Plt Count 182 Neut % (Auto) 62.0 Lymph % (Auto) 23.2 L [place] % (Auto) 10.5 Eos % (Auto) 3.7 Baso % (Auto) 0.6 Neut # (Auto) 4600 Lymph # (Auto) 1700 [place] # (Auto) 800 Eos # (Auto) 300 Baso # (Auto) 0 PT 11.5 INR 1.0 APTT 36 Sodium 141 Potassium 4.1 Chloride 103 Carbon Dioxide 28 BUN 23 H Creatinine 1.00 Estimated GFR > 60.0 BUN/Creatinine Ratio 23.0 H Glucose 107 Hemoglobin A1c Calcium 9.6 Total Bilirubin 0.7 AST 41 ALT 43 Alkaline Phosphatase 49 Total Creatine Kinase 243 H CK-MB (CK-2) 3.28 H CK-MB (CK-2) Rel Index 1.3 L Troponin I < 0.012 Total Protein 7.9 Albumin 4.5 Globulin 3.4 Albumin/Globulin Ratio 1.3 Urine Color Urine Appearance Urine pH Ur Specific [place] Urine Protein Urine Glucose (UA) Urine Ketones Urine Occult Blood Urine Nitrate Urine Bilirubin Urine Urobilinogen Ur Leukocyte Esterase Urine RBC Urine WBC Ur Squamous Epith Cells Urine Bacteria Ur Culture Indicated? 05/06/18 05/06/18 05/06/18 04:25 04:25 04:25 WBC 6.0 RBC 5.21 Hgb 15.7 Hct 46.5 MCV 89.2 MCH 30.2 MCHC 33.8 RDW 13.1 Plt Count 159 Neut % (Auto) 50.0 Lymph % (Auto) 33.9 [place] % (Auto) 11.5 Eos % (Auto) 4.3 H Baso % (Auto) 0.3 Neut # (Auto) 3000 Lymph # (Auto) 2000 [place] # (Auto) 700 Eos # (Auto) 300 Baso # (Auto) 0 PT INR APTT Sodium 139 Potassium 3.6 Chloride 103 Carbon Dioxide 27 BUN 18 Creatinine 0.90 Estimated GFR > 60.0 BUN/Creatinine Ratio 20.0 Glucose 112 H Hemoglobin A1c 6.3 H Calcium 8.9 Total Bilirubin AST ALT Alkaline Phosphatase Total Creatine Kinase 172 H CK-MB (CK-2) CK-MB (CK-2) Rel Index Troponin I Total Protein Albumin Globulin Albumin/Globulin Ratio Urine Color Urine Appearance Urine pH Ur Specific [place] Urine Protein Urine Glucose (UA) Urine Ketones Urine Occult Blood Urine Nitrate Urine Bilirubin Urine Urobilinogen Ur Leukocyte Esterase Urine RBC Urine WBC Ur Squamous Epith Cells Urine Bacteria Ur Culture Indicated? 05/06/18 12:45 WBC RBC Hgb Hct MCV MCH MCHC RDW Plt Count Neut % (Auto) Lymph % (Auto) [place] % (Auto) Eos % (Auto) Baso % (Auto) Neut # (Auto) Lymph # (Auto) [place] # (Auto) Eos # (Auto) Baso # (Auto) PT INR APTT Sodium Potassium Chloride Carbon Dioxide BUN Creatinine Estimated GFR BUN/Creatinine Ratio Glucose Hemoglobin A1c Calcium Total Bilirubin AST ALT Alkaline Phosphatase Total Creatine Kinase CK-MB (CK-2) CK-MB (CK-2) Rel Index Troponin I Total Protein Albumin Globulin Albumin/Globulin Ratio Urine Color Yellow Urine Appearance Clear Urine pH 7.0 Ur Specific [place] 1.020 Urine Protein Negative Urine Glucose (UA) Negative Urine Ketones Negative Urine Occult Blood Negative Urine Nitrate Negative Urine Bilirubin Negative Urine Urobilinogen 0.2 Ur Leukocyte Esterase Negative Urine RBC None seen Urine WBC 0-1/hpf Ur Squamous Epith Cells 0-1 /hpf Urine Bacteria None seen Ur Culture Indicated? Cult not indicated Discharge Plan Discharge Plan Patient Disposition: Home Discharge Med Rec/Prescriptions Prescriptions: Continued aspirin 81 mg Tablet,Chewable 81 mg PO DAILY RF: 0 multivitamin Tablet 1 tab PO DAILY RF: 0 Follow up/Referrals: Jean Rincon MD [Primary Care Provider] - Provider Discharge Instructions Diet: Diet as Tolerated Discharge Data Primary Care Provider: Jean Rincon Attending Provider: Constanza Gaines Admit Date/Time: 05/05/18 20:05 Quality VTE Deep Vein Thrombosis/Pulmonary Embolism Present on Admission: No
--- NOTE | 2018-05-06 13:47 | OT.IP.TRT ---
Occupational Therapy Treatment Note M3 OT- IP Subjective and Pain Start: 05/06/18 13:44 Freq: Status: Active Protocol: Document 05/06/18 13:44 [facility] (Rec: 05/06/18 13:47 [facility] [id number]) OT- Subjective Occupational Therapy Visit Type Type Administrative Note Notes Pt being discharged today and states does not have any issues for OT needs and that his able to assist if needed. Therefore discharge OT eval orders.
--- NOTE | 2018-05-06 14:19 | PC.NURSE ---
Discharge: Tests and procedures completed. has been seen by Dr. Houston and d/c. Has been seen by PT and is safe when up. Pt has a vacation he is looking forward to. Reviewed d/c instructions. No new rx. Pt d/c home via auto w/spouse. Denies any concerns.
== END 2018-05-06 13:45 | disposition home or self-care (01) ==
LOC: ED 20:01 → AC 20:06
PROVIDERS: Admitting Provider Nurse Practitioner Gerontology; Emergency Provider Emergency Medicine; PCP Family Medicine; Visit Provider Nurse Practitioner Gerontology
DX: R53.1 Weakness (principal); R20.0 Anesthesia of skin; G47.33 Obstructive sleep apnea (adult) (pediatric); I83.93 Asymptomatic varicose veins of bilateral lower extremities; E66.01 Morbid (severe) obesity due to excess calories; Z68.41 Body mass index [BMI] 40.0-44.9, adult; Z98.890 Other specified postprocedural states
CPT/HCPCS: 36415; 36591; 70450; 70553; 80048; 80053; 81001; 82550; 82553; 82962; 83036; 84484; 85025; 85610; 85730; 87040; 93005; 93306; 97162; 99283; 99285; 99291; G0378; J1644

== ENCOUNTER → 2018-06-29 08:41 | Outpatient (CLI) | payer OTHER, SELFPAY ==
--- NOTE | 2018-06-29 | DI.RAD.S_ITS ---
PROCEDURE: XR LUMBAR SPINE MIN 4V INDICATIONS: BACK PAIN/RIGHT KNEE PAIN TECHNIQUE: 5 views of the lumbar spine were acquired. COMPARISON: None. FINDINGS: Bones: 5 nonrib-bearing vertebrae are present. L4-L5 of posterior spinal fusion hardware noted, without evidence of acute hardware complication. No acute fracture dislocation is identified. There are moderate multilevel degenerative changes of the lumbar spine as evidenced by anterior osteophyte formation, facet arthropathy, and loss of intervertebral disc space height. There is 8 mm of anterolisthesis of L4 on L5. There is approximately 4 mm of retrolisthesis of L1 on L2 and L2 on L3. There is no significant change in alignment of the lumbar spine on flexion and extension views. Soft tissues: Overlying bowel gas pattern is nonobstructive. An inflatable gastric band noted projecting over the abdomen and stomach. IMPRESSION: Moderate multilevel degenerative changes of the lumbar spine as described above, with no significant change in alignment of the lumbar spine on flexion and extension views. Dictated by: Emiliano Estrella M.D. on 06/29/2018 at 9:37 Approved by: Emiliano Estrella M.D. on 06/29/2018 at 10:14
--- NOTE | 2018-06-29 | DI.RAD.S_ITS ---
PROCEDURE: XR KNEE RT 3V INDICATIONS: BACK PAIN/RIGHT KNEE PAIN TECHNIQUE: 3 views of the knee were acquired. COMPARISON: None. FINDINGS: Bones: No fractures or dislocations. No suspicious bony lesions. Minimal tricompartmental osteophyte formation. Soft tissues: No joint effusion. There is an oval circumscribed 1.0 cm well-corticated calcific joint body posterior to the right knee joint. IMPRESSION: Minimal tricompartmental degenerative changes of the right knee. No acute osseous abnormality of the right knee. Dictated by: Emiliano Estrella M.D. on 06/29/2018 at 9:31 Approved by: Emiliano Estrella M.D. on 06/29/2018 at 9:36
== END ==
PROVIDERS: PCP Family Medicine; Visit Provider Family Medicine
DX: M54.41 Lumbago with sciatica, right side (principal); M25.561 Pain in right knee; M47.26 Other spondylosis with radiculopathy, lumbar region; G89.29 Other chronic pain; Z98.1 Arthrodesis status
CPT/HCPCS: 72110; 73562

== ENCOUNTER 2019-11-07 13:01 | Emergency (ER) | payer OTHER, SELFPAY ==
[2019-11-07 13:03] VITALS: BP 175/101; PULSE 78; RESP 15; TEMP 36.8; O2SAT 96; BMI 43.1
--- NOTE | 2019-11-07 13:46 | DI.RAD.S_ITS ---
PROCEDURE: XR HAND RT MIN 3V INDICATIONS: right hand swelling, pain TECHNIQUE: 3 views of the hand(s) acquired. COMPARISON: None. FINDINGS: Bones: No fractures or dislocations. Carpal bones are normally aligned. No suspicious bony lesions. No osseous erosive changes or periosteal reaction. Soft tissues: No suspicious soft tissue calcifications. No soft tissue gas IMPRESSION: No osseous lesion. If symptoms and/or clinical suspicion for pathology persists, further assessment with repeat radiographs (7-10 days) or advanced imaging (e.g. CT, MRI or bone scan) may be helpful. Dictated by: Jenn Ryder MD, PhD on 11/07/2019 at 14:37 Approved by: Jenn Ryder MD, PhD on 11/07/2019 at 14:38
[2019-11-07 14:19] LABS: Add Manual Diff / Slide Review NO; Basophils Absolute Auto 100 /uL (0-100); Basophils Percent Auto 0.6 % (0-2); Eosinophils Absolute Auto 300 /uL (0-450); Eosinophils Percent Auto 3.3 % (2-4); Hematocrit 48.6 % (41-53); Hemoglobin 16.8 g/dL (13.5-17.5); Lymphocytes Absolute Auto 1800 /uL (1100-4500); Lymphocytes Percent Auto 20.6 % (25-40); Mean Corpuscular HGB Conc 34.5 % (30-36); Mean Corpuscular Hemoglobin 30.6 PG (26-34); Mean Corpuscular Volume 88.6 fL (80-100); Monocytes Absolute Auto 700 /uL (0-900); Monocytes Percent Auto 8.4 % (3-14); Neutrophils Absolute Auto 5800 /uL (1500-7000); Neutrophils Percent Auto 67.1 % (50-75); Platelet Count 171 X10^3/uL (150-400); Red Blood Cell Count 5.48 X10^6/uL (4.5-5.9); Red Cell Distribution Width 13.5 % (11.6-14.8); White Blood Cell Count 8.6 X10^3/uL (4.5-11.0)
[2019-11-07 14:40] LABS: BUN Creatinine Ratio 19.8 (6-22); Blood Urea Nitrogen 16 mg/dL (9-20); Calcium 9.9 mg/dL (8.4-10.2); Carbon Dioxide 27 mmol/L (22-32); Chloride 104 mmol/L (98-107); Estimated Glomerular Filt Rate > 60.0 mL/min (>60); Glucose 143 mg/dL (80-110); HEMOLYSIS 17 (0-50); Lactate (Lactic Acid) 1.1 mmol/L (0.7-2.1); Potassium 4.1 mmol/L (3.4-5.1); Sodium 138 mmol/L (137-145)
--- NOTE | 2019-11-07 14:44 | ED.SKABFB ---
HPI - Skin/Abscess/Foreign Bdy <Froylan ChenAbenaBraydonSHABBIR lawsonP - Last Filed: 11/07/19 15:15> General Chief complaint: Skin/Abscess/Foreign Body Stated complaint: infection in right hand Time Seen by Provider: 11/07/19 13:18 Source: patient Mode of arrival: Ambulatory Limitations: no limitations History of Present Illness HPI narrative: This is a 63-year-old male, nonsmoker, who has history of staph infection on right arm 4-5 years ago stents to ED with right, dominant hand, swelling, discomfort, mild erythema. Patient initially this symptoms last week and he thought he might have bumped his right hand on headboard of the bed during sleep. After a few days his symptoms improved. However 2 days ago the symptoms recurred with tightness and swelling on right hand in radial aspect of metacarpal. Patient denies fever, chills, nausea or vomiting. Patient denies open skin or puncture wounds. Related Data Home Medications Medication Instructions Recorded Confirmed aspirin 81 mg PO DAILY 05/06/18 05/06/18 multivitamin 1 tab PO DAILY 05/06/18 05/06/18 Previous Rx's Medication Instructions Recorded doxycycline hyclate 100 mg PO BID 7 Days #14 cap 11/07/19 Allergies Allergy/AdvReac Type Severity Reaction Status Date / Time No Known Drug Allergies Allergy Verified 11/07/19 13:07 Review of Systems <Froylan Prec[facility]ulu [facility] - Last Filed: 11/07/19 15:15> Review of Systems Narrative: General: Denies fever, chills, fatigue, malaise, sweats. HEENT: Denies sinus pain, ear pain, sore throat, difficulty swallowing, dizziness. Respiratory: Denies dyspnea, cough, wheezing, hemoptysis, sputum. Cardiovascular: Denies chest pain, palpitations, orthopnea, edema. Gastrointestinal: Denies nausea, vomiting, abdominal pain, diarrhea, constipation, melena. : Denies dysuria, frequency, incontinence, hematuria, urinary retention. Musculoskeletal: See HPI Skin: See HPI Neurologic: Denies weakness, headache, numbness, change in speech, confusion, seizures, incoordination. Psychiatric: No concerning psychosocial issues. 12-point review of systems is negative except for those stated above. Patient History <[facility] Last Filed: 11/07/19 15:15> Medical History History of streptococcal infection (Resolved) Morbid obesity (Chronic) YOGESH (obstructive sleep apnea) (Chronic) Varicose veins of both lower extremities (Chronic) Surgical History H/O laparoscopic adjustable gastric banding (Chronic) History of lumbar fusion (Inactive) Family History Mother Diabetes mellitus Father Diabetes mellitus Brother Colon cancer Social History household members: significant other Smoking Status: Never smoker alcohol intake: current Smoking Status: Never smoker alcohol intake frequency: a few times a week Substance Use Type: does not use Exam <CARIDAD Hernadez - Last Filed: 11/07/19 15:15> Narrative Exam Narrative: General appearance: well developed, well nourished, in no acute distress. Head: normocephalic, atraumatic, no scalp lesions, non-tender. ENT: Hearing grossly intact. Nose without bleeding, purulent discharge. Airway patent. Neck/Thyroid: neck supple, full range of motion, no visible masses or meningeal signs. No JVD, non-tender without lymphadenopathy. Skin: no suspicious rashes, lesions over visible areas. Warm and dry and appropriate color for ethnicity. Very mild erythema to right hand. Heart: no clubbing, no cyanosis, no edema. S1 and S2 normal. RRR w/o murmurs, clicks, or bruits. Lungs: Breathing even and unlabored. No stridor. No accessory muscles used. Able to speak in full sentences. Chest: normal shape and expansion. Abdomen: non-obese, non-distended. Neurologic: alert and oriented. Cognitive exam, [employer] and PNS grossly intact on informal exam. Psych: good eye contact, normal affect. Initial Vital Signs Initial Vital Signs: Vital Signs Temperature 98.3 F 11/07/19 13:03 Pulse Rate 78 11/07/19 13:03 Respiratory Rate 15 11/07/19 13:03 Blood Pressure 175/101 H 11/07/19 13:03 Pulse Oximetry 96 11/07/19 13:03 Extrem Right upper extremity: elbow/forearm Details: normal to inspection; no tenderness and no swelling, wrist Details: normal to inspection; no tenderness and no swelling and hand Details: abnormal to inspection, normal capillary refill, neuromotor exam normal, neurosensory exam normal, tendon exam normal, tenderness Location: of the dorsal hand (radial aspect metacarpal), vascular exam Details: radial pulse present and normal capillary refill, normal ROM of fingers and swelling (radial aspect metacarpal extending to ring finger) Location: of the dorsal hand; no abrasions, no lacerations, no ecchymosis, no crepitus, no foreign bodies and no puncture wound <Quinn Colbert MD - Last Filed: 11/07/19 15:49> Initial Vital Signs Initial Vital Signs: Vital Signs Temperature 98.3 F 11/07/19 13:03 Pulse Rate 78 11/07/19 13:03 Respiratory Rate 15 11/07/19 13:03 Blood Pressure 175/101 H 11/07/19 13:03 Pulse Oximetry 96 11/07/19 13:03 Scores <CARIDAD Hernadez - Last Filed: 11/07/19 15:15> GCS [place] coma scale eye opening: Spontaneous [place] coma scale verbal response: Orientated [place] coma scale motor response: Obey commands Ze[place] coma scale total score: 15 Course <CARIDAD Hernadez - Last Filed: 11/07/19 15:15> Orders Ordered: ED Orders 11/07/19 13:46 XR hand RT min 3V Stat 11/07/19 14:13 Basic Metabolic Panel Stat Complete Blood Count AUTO DIFF Stat Lactate (Lactic Acid) Stat Procalcitonin Stat Vital Signs Vital signs: Vital Signs - 8 hr 11/07/19 13:03 11/07/19 15:02 Temperature 98.3 F Pulse Rate 78 70 Respiratory Rate 15 Blood Pressure 175/101 H 180/111 H Pulse Oximetry 96 99 <Quinn Colbert MD - Last Filed: 11/07/19 15:49> Orders Ordered: ED Orders 11/07/19 13:46 XR hand RT min 3V Stat 11/07/19 14:13 Basic Metabolic Panel Stat Complete Blood Count AUTO DIFF Stat Lactate (Lactic Acid) Stat Procalcitonin Stat Vital Signs Vital signs: Vital Signs - 8 hr 11/07/19 13:03 11/07/19 15:02 Temperature 98.3 F Pulse Rate 78 70 Respiratory Rate 15 Blood Pressure 175/101 H 180/111 H Pulse Oximetry 96 99 MDM - Skin/Abscess/Foreign Bdy <Froylan April-CARIDAD Garibay - Last Filed: 11/07/19 15:15> Differential Diagnosis Differential diagnosis: Likely cellulitis and other (Contusion, fracture, DVT) Medical Records Attestation: I reviewed the patient's medical records. Lab Data Attestation: I reviewed the patient's lab results. Result diagrams: 11/07/19 14:13 11/07/19 14:13 Labs: Lab Results 11/07/19 11/07/19 11/07/19 Range/Units 14:13 14:13 14:13 WBC 8.6 (4.5-11.0) X10^3/uL RBC 5.48 (4.5-5.9) X10^6/uL Hgb 16.8 (13.5-17.5) g/dL Hct 48.6 (41-53) % MCV 88.6 (80-100) fL MCH 30.6 (26-34) PG MCHC 34.5 (30-36) % RDW 13.5 (11.6-14.8) % Plt Count 171 (150-400) X10^3/uL Neut % (Auto) 67.1 (50-75) % Lymph % (Auto) 20.6 L (25-40) % [place] % (Auto) 8.4 (3-14) % Eos % (Auto) 3.3 (2-4) % Baso % (Auto) 0.6 (0-2) % Neut # (Auto) 5800 (3163-6118) /uL Lymph # (Auto) 1800 (9444-0778) /uL [place] # (Auto) 700 (0-900) /uL Eos # (Auto) 300 (0-450) /uL Baso # (Auto) 100 (0-100) /uL Sodium 138 (137-145) mmol/L Potassium 4.1 (3.4-5.1) mmol/L Chloride 104 (98-107) mmol/L Carbon Dioxide 27 (22-32) mmol/L BUN 16 (9-20) mg/dL Creatinine 0.81 (0.66-1.25) mg/dL Estimated GFR > 60.0 (>60) mL/min BUN/Creatinine Ratio 19.8 (6-22) Glucose 143 H (80-110) mg/dL Lactate (0.7-2.1) mmol/L Calcium 9.9 (8.4-10.2) mg/dL Procalcitonin 0.05 (<0.5) ng/mL 11/07/19 Range/Units 14:13 WBC (4.5-11.0) X10^3/uL RBC (4.5-5.9) X10^6/uL Hgb (13.5-17.5) g/dL Hct (41-53) % MCV (80-100) fL MCH (26-34) PG MCHC (30-36) % RDW (11.6-14.8) % Plt Count (150-400) X10^3/uL Neut % (Auto) (50-75) % Lymph % (Auto) (25-40) % [place] % (Auto) (3-14) % Eos % (Auto) (2-4) % Baso % (Auto) (0-2) % Neut # (Auto) (9699-2369) /uL Lymph # (Auto) (0025-1984) /uL [place] # (Auto) (0-900) /uL Eos # (Auto) (0-450) /uL Baso # (Auto) (0-100) /uL Sodium (137-145) mmol/L Potassium (3.4-5.1) mmol/L Chloride (98-107) mmol/L Carbon Dioxide (22-32) mmol/L BUN (9-20) mg/dL Creatinine (0.66-1.25) mg/dL Estimated GFR (>60) mL/min BUN/Creatinine Ratio (6-22) Glucose (80-110) mg/dL Lactate 1.1 (0.7-2.1) mmol/L Calcium (8.4-10.2) mg/dL Procalcitonin (<0.5) ng/mL Imaging Data XR-Hand RT: Radiologist's Impression: [address] [address] XRay Report Signed Patient: Jonh Vieyra#: [id number] : 8Acct:[id number] Age/Sex: 63 / MDate of Service: 11/07/19 Loc: ED Accession Number: [id number] Procedure: XR hand RT min 3V Ordering Provider: Froylan Del Toro PROCEDURE: XR HAND RT MIN 3V INDICATIONS: right hand swelling, pain TECHNIQUE: 3 views of the hand(s) acquired. COMPARISON: None. FINDINGS: Bones: No fractures or dislocations. Carpal bones are normally aligned. No suspicious bony lesions. No osseous erosive changes or periosteal reaction. Soft tissues: No suspicious soft tissue calcifications. No soft tissue gas IMPRESSION: No osseous lesion. If symptoms and/or clinical suspicion for pathology persists, further assessment with repeat radiographs (7-10 days) or advanced imaging (e.g. CT, MRI or bone scan) may be helpful. Dictated by: Jenn Ryder MD, PhD on 11/07/2019 at 14:37 Approved by: Jenn Ryder MD, PhD on 11/07/2019 at 14:38 [facility] Narrative Medical decision making narrative: This is a 63-year-old gentleman presents to ED with right hand swelling, discomfort, mild erythema. Patient has history of staph infection about 4-5 years ago and was treated with antibiotic medication. Patient denies constitutional symptoms. Initially he noticed his symptoms about a week ago which has improved after a couple of days and noticed recurring symptoms last couple of days. There is no leukocytosis today or elevation in neutrophils. Unremarkable chemistry test except mildly elevated blood glucose of 143. Normal lactate. X-ray test does not show acute findings such as fractures, dislocation or bony lesions. Given patient has recurring symptoms in 1 week, has history of staph infection, will treat as cellulitis based on clinical findings although lab tests are unremarkable and does not have constitutional symptoms. Consider DVT but physical exam is not consistent and the area is not near the deep vein system. Return precautions were discussed with patient and patient verbalized understanding and in agreement with the treatment plan. <Quinn Colbert MD - Last Filed: 11/07/19 15:49> Lab Data Labs: Lab Results 11/07/19 11/07/19 11/07/19 Range/Units 14:13 14:13 14:13 WBC 8.6 (4.5-11.0) X10^3/uL RBC 5.48 (4.5-5.9) X10^6/uL Hgb 16.8 (13.5-17.5) g/dL Hct 48.6 (41-53) % MCV 88.6 (80-100) fL MCH 30.6 (26-34) PG MCHC 34.5 (30-36) % RDW 13.5 (11.6-14.8) % Plt Count 171 (150-400) X10^3/uL Neut % (Auto) 67.1 (50-75) % Lymph % (Auto) 20.6 L (25-40) % [place] % (Auto) 8.4 (3-14) % Eos % (Auto) 3.3 (2-4) % Baso % (Auto) 0.6 (0-2) % Neut # (Auto) 5800 (7563-0009) /uL Lymph # (Auto) 1800 (1827-1319) /uL [place] # (Auto) 700 (0-900) /uL Eos # (Auto) 300 (0-450) /uL Baso # (Auto) 100 (0-100) /uL Sodium 138 (137-145) mmol/L Potassium 4.1 (3.4-5.1) mmol/L Chloride 104 (98-107) mmol/L Carbon Dioxide 27 (22-32) mmol/L BUN 16 (9-20) mg/dL Creatinine 0.81 (0.66-1.25) mg/dL Estimated GFR > 60.0 (>60) mL/min BUN/Creatinine Ratio 19.8 (6-22) Glucose 143 H (80-110) mg/dL Lactate (0.7-2.1) mmol/L Calcium 9.9 (8.4-10.2) mg/dL Procalcitonin 0.05 (<0.5) ng/mL 11/07/19 Range/Units 14:13 WBC (4.5-11.0) X10^3/uL RBC (4.5-5.9) X10^6/uL Hgb (13.5-17.5) g/dL Hct (41-53) % MCV (80-100) fL MCH (26-34) PG MCHC (30-36) % RDW (11.6-14.8) % Plt Count (150-400) X10^3/uL Neut % (Auto) (50-75) % Lymph % (Auto) (25-40) % [place] % (Auto) (3-14) % Eos % (Auto) (2-4) % Baso % (Auto) (0-2) % Neut # (Auto) (3887-6594) /uL Lymph # (Auto) (2976-5120) /uL [place] # (Auto) (0-900) /uL Eos # (Auto) (0-450) /uL Baso # (Auto) (0-100) /uL Sodium (137-145) mmol/L Potassium (3.4-5.1) mmol/L Chloride (98-107) mmol/L Carbon Dioxide (22-32) mmol/L BUN (9-20) mg/dL Creatinine (0.66-1.25) mg/dL Estimated GFR (>60) mL/min BUN/Creatinine Ratio (6-22) Glucose (80-110) mg/dL Lactate 1.1 (0.7-2.1) mmol/L Calcium (8.4-10.2) mg/dL Procalcitonin (<0.5) ng/mL Discharge Plan Departure Patient Disposition: Home Clinical Impression: Hand pain, right Cellulitis Qualifiers: Site of cellulitis: extremity Site of cellulitis of extremity: upper extremity Laterality: right Qualified Code(s): L03.113 - Cellulitis of right upper limb Discharge Date/Time: 11/07/19 15:18 Instructions: DI for Cellulitis -- Adult Activity Restrictions/Additional Instructions: You have been diagnosed with [right hand pain likely from cellulitis. X-ray test does not show acute findings such as fractures or bony lesions. Today's blood test were unremarkable including CBC, lactate, chemistry test. However he have a history of staph infection and recalling trauma so will treat as an infection at this time.]. What to do: *Take your medications as directed. Start doxycycline twice a day for next 7 days. *Follow up with your primary care provider in 2-3 days, call for an appointment. Let them know you were seen in the ED and that we asked you to be seen in follow up. *Return to ED if you have any new, worsening, or concerning symptoms, such as [worsening symptoms such as increasing redness, pain, swelling, fever, chest pain, breathing difficulty or any acute concerns]. Prescriptions: New doxycycline hyclate 100 mg capsule 100 mg PO BID 7 Days Qty: 14 RF: 0 No Action aspirin 81 mg Tablet,Chewable 81 mg PO DAILY RF: 0 multivitamin Tablet 1 tab PO DAILY RF: 0 Referrals: Quinn Payne MD [Primary Care Provider] - <Quinn Colbert MD - Last Filed: 11/07/19 15:49> Cosign ED Attending Cosignature Attestation: I was immediately available in the department for consultation. This documentation has been reviewed and I agree with assessment and plan. Supervised by Quinn Colbert MD
[2019-11-07 14:57] LABS: Procalcitonin 0.05 ng/mL (<0.5)
[2019-11-07 15:02] VITALS: BP 180/111; PULSE 70; O2SAT 99
== END 2019-11-07 15:18 | disposition home or self-care (01) ==
PROVIDERS: Emergency Provider Nurse Practitioner Family; PCP Family Medicine
DX: L03.113 Cellulitis of right upper limb (principal); M79.641 Pain in right hand; R73.9 Hyperglycemia, unspecified; E66.01 Morbid (severe) obesity due to excess calories; Z79.82 Long term (current) use of aspirin
CPT/HCPCS: 36415; 73130; 80048; 83605; 84145; 85025; 99281; 99284

== ENCOUNTER → 2022-05-12 11:32 | Outpatient (CLI) | payer OTHER, SELFPAY | PROVIDERS: PCP Family Medicine; Visit Provider Specialist | DX: R30.0 Dysuria (principal); N40.1 Benign prostatic hyperplasia with lower urinary tract symptoms; N13.8 Other obstructive and reflux uropathy; Z87.442 Personal history of urinary calculi; Z87.440 Personal history of urinary (tract) infections | CPT/HCPCS: 51798; 81002; 87086 ==

== ENCOUNTER → 2022-05-19 13:02 | Outpatient (CLI) | payer OTHER, SELFPAY ==
--- NOTE | 2022-05-19 13:04 | DI.CT.S_ITS ---
PROCEDURE: CT KIDNEY URETER BLADDER (KUB) INDICATIONS: LUTS. UTI. history of kidney stones TECHNIQUE: Axial sections were acquired from the lung bases to the pubic symphysis. Coronal and sagittal reformats were performed. For radiation dose reduction, the following was used: automated exposure control, adjustment of mA and/or kV according to patient size. COMPARISON: None. FINDINGS: Image quality: Excellent. Lung bases: Unremarkable. Small hiatal hernia. Mild concentric thickening at the gastroesophageal junction, probably secondary to gastroesophageal reflux. Heart: No significant findings. URINARY: Right Kidney: No stones. Mild hydronephrosis. Right Ureter: Mild hydroureter with the ureter dilated to the ureterovesical junction. Left Kidney: No stones or hydronephrosis. Left Ureter: No hydroureter. Bladder: Focal thickening in the right bladder base, suspicious for mass. No stones. ABDOMEN: Liver: Hepatic steatosis. Gallbladder: Unremarkable. Biliary ducts: Unremarkable. Pancreas: Unremarkable. Spleen: Unremarkable. Adrenal Glands: Unremarkable. Stomach and Bowel: There is gastric banding. Small bowel loops, and colon are normal in caliber. Mild diverticulosis without diverticulitis. Peritoneum: No abnormal intraperitoneal fluid. No free air. Ventral Wall: No hernia. Abdominal Nodes: No enlarged retroperitoneal or mesenteric lymph nodes. Vessels: Aorta and inferior vena cava are normal in size. PELVIS: Pelvic Organs: Unremarkable. Pelvic Nodes: Unremarkable. Miscellaneous: No inguinal hernias are seen. Bones: Degenerative changes at L4-L5. IMPRESSION: 1. There is bladder wall thickening along the right posterior bladder wall/bladder base concerning for uroepithelial neoplasm. Recommend cystoscopy for further evaluation. 2. Mild right hydronephrosis and hydroureter with obstruction at the right UVJ. 3. No urinary stones. 4. Hepatic steatosis. 5. Small hiatal hernia. Mild concentric thickening of the distal esophagus, probably secondary to gastroesophageal reflux. Dictated by: Enoch Nicholas M.D. on 05/19/2022 at 13:23 Approved by: Enoch Nicholas M.D. on 05/19/2022 at 14:06
== END ==
PROVIDERS: PCP Family Medicine; Referring Provider Specialist; Visit Provider Specialist
DX: N40.1 Benign prostatic hyperplasia with lower urinary tract symptoms (principal); N13.8 Other obstructive and reflux uropathy; N13.30 Unspecified hydronephrosis; K44.9 Diaphragmatic hernia without obstruction or gangrene; K76.0 Fatty (change of) liver, not elsewhere classified; K57.90 Diverticulosis of intestine, part unspecified, without perforation or abscess without bleeding; Z87.440 Personal history of urinary (tract) infections; Z87.442 Personal history of urinary calculi; Z98.84 Bariatric surgery status
CPT/HCPCS: 74176

== ENCOUNTER → 2022-05-22 08:46 | Outpatient (CLI) | payer OTHER, SELFPAY ==
--- NOTE | 2022-05-22 08:48 | DI.CT.S_ITS ---
PROCEDURE: CT IVP A/P W/WO INDICATIONS: Abn CT- KUB/Hematuria, unspecified TECHNIQUE: 5 mm thick noncontrast images acquired from the diaphragm to the symphysis pubis. After the administration of intravenous contrast, 5 mm thick images acquired from the diaphragm to the symphysis pubis after a 10-minute delay using a split bolus technique. 2 mm thick coronal reformats were then performed of the kidneys and ureters. For radiation dose reduction, the following was used: automated exposure control, adjustment of mA and/or kV according to patient size. COMPARISON: [facility], CT, CT KIDNEY URETER BLADDER (KUB), 05/19/2022, 13:04. FINDINGS: Image quality: Adequate Lung bases: No pleural effusion Urinary system: Redemonstration of irregular thickening of the right posterior urinary bladder wall suspicious for neoplasm. This involves the right UVJ with mild-moderate upstream hydroureteronephrosis. There is delayed enhancement of the right kidney and no contrast excretion into the right renal collecting system or ureter is demonstrated at the time of the exam. No left hydronephrosis. Opacified portions of the left renal collecting system and ureter are unremarkable without a definite filling defect identified. The distal left ureter is not well opacified and is not well evaluated. Renal cortical cysts and hypodensities too small to characterize but statistically likely to represent additional cysts are present. No definite renal stones identified. Other solid organs: Liver is normal in size and enhancement. Gallbladder is unremarkable . Biliary system is non dilated. Pancreas enhances normally. Spleen is normal in size and enhancement. No adrenal nodules. Peritoneum and bowel: A gastric lap band is present. No evidence of mechanical small bowel obstruction. Nodes and vessels: No retroperitoneal or mesenteric adenopathy by size criteria. Aorta and inferior vena cava are normal in size. Abdominal wall: Gastric lap band port at the right upper quadrant abdominal wall. Small periumbilical fat containing hernia. Pelvis: No pathologic free pelvic fluid. No intrapelvic adenopathy. Few prominent left inguinal lymph nodes are present, nonspecific. Bones: Multilevel degenerative change of the visualized spine. Postsurgical changes of lower lumbar fusion. IMPRESSION: 1. Redemonstration of irregular thickening of the right posterior urinary bladder wall suspicious for neoplasm. This involves the right UVJ with mild-moderate upstream hydroureteronephrosis. 2. The right renal collecting system and ureter are not opacified and are not well evaluated. 3. No intrapelvic adenopathy identified. Prominent left inguinal lymph nodes are present, nonspecific, could be reactive. Attention on follow-up is recommended. Dictated by: Kole Little M.D. on 05/22/2022 at 11:14 Approved by: Kole Little M.D. on 05/22/2022 at 11:48
[2022-05-22 09:12] LABS: Estimated Glomerular Filt Rate 55 mL/min (>60)
== END ==
PROVIDERS: Radiology Diagnostic Radiology; PCP Family Medicine; Referring Provider Specialist; Visit Provider Specialist
DX: N13.30 Unspecified hydronephrosis (principal); R93.5 Abnormal findings on diagnostic imaging of other abdominal regions, including retroperitoneum; R31.9 Hematuria, unspecified; Z98.84 Bariatric surgery status; Z98.1 Arthrodesis status
CPT/HCPCS: 36415; 74178; 82565; Q9967

== ENCOUNTER → 2022-05-28 14:30 | Outpatient (CLI) | payer OTHER, SELFPAY | PROVIDERS: PCP Family Medicine; Visit Provider Specialist | DX: C67.8 Malignant neoplasm of overlapping sites of bladder (principal); N39.0 Urinary tract infection, site not specified; N40.1 Benign prostatic hyperplasia with lower urinary tract symptoms; N13.8 Other obstructive and reflux uropathy; Z87.440 Personal history of urinary (tract) infections; Z87.442 Personal history of urinary calculi | CPT/HCPCS: 52000; 81002; 87086; 99215 ==

== ENCOUNTER 2022-06-15 10:18 | Day surgery (SDC) | payer OTHER, SELFPAY ==
[2022-06-04 08:40] VITALS: BMI 44.1
[2022-06-15] VITALS (8 sets, daily range): BP systolic 119–173; BP diastolic 70–98; PULSE 71–104; RESP 14–22; TEMP 36–36.4; O2SAT 91–97; BMI 42.7
--- NOTE | 2022-06-15 | PATH_ITS ---
[facility] Accession Number: [id number] No. of containers..01 Tissue . 01 Material submitted: . bladder - BLADDER TUMOR . 01 Clinical history: . BLADDER TUMOR GREATER THAN 5 CENTIMETERS RIGHT FLOOR TRIGONE, RIGHT POSTERIOR BLADDER RIGHT ANTERIOR . 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 - Carcinoma appears to extend into muscularis propria. - Negative for lymphovascular invasion. - Negative for in situ carcinoma. V 06/22/2022 1330 Local . 01 Comment: The tumor invades as sheets of a mixture of epithelioid, sarcomatoid, and pleomorphic cells with abundant eosinophilic cytoplasm and foci of apparent keratinization. A *panel of immunostains is obtained, with the controls stained appropriate. The tumor shows the following results: . Broad spectrum cytokeratins (MARBELLA): Variably positive. P63: Uniformly positive. Cytokeratin 7: Negative. Cytokeratin 20: Negative. GATA3: Negative. . These results, in conjunction with the morphologic features, are characteristic of a squamous cell carcinoma given the typical cytokeratin 7 negative/cytokeratin 20 profile and high level expression with p63. Although not excluded completely, a urothelial component is not identified in this specimen, given the aforementioned cytokeratin 7/20 profile and absence of expression with the urothelial marker GATA3. . The differential diagnosis includes a pure squamous cell carcinoma or squamous differentiation of urothelial carcinoma. Distinction will require examination of the entire tumor. . * This test was developed and its performance characteristics determined by [facility]. It has not been cleared or approved by the U.S. Food and Drug Administration. The FDA has determined that such clearance or approval is not necessary. This test is used for clinical purposes. It should not be regarded as investigational or for research. . 01 Electronically signed: . Christine Reyes MD, Pathologist NPI- [id number] . 01 Gross description: . BLADDER TUMOR: Received in formalin are multiple fragment(s) of bah, soft tissue measuring 2.7 x 2.5 x 0.3 cm in aggregate to 2.5 x 2.5 x 0.2 cm submitted entirely in 2 cassette(s) /CPE 06/16/2022 0829 Local . 01 Pathologist provided ICD-10: C67.9 . 01 CPT . 088761, M53091, [id number] Specimen Comment: A courtesy copy of this report has been sent to [phone] Performed at: [address] [facility] [address] [facility], [place], [place] [id number] MD Ramana Love MD Phone: [phone]
[2022-06-15 11:27] LABS: COVID19 -Nasal RAPID Negative (Negative)
[2022-06-15] MEDS: LACTATED RINGERS 1,000 ML 42 ML IV (11:30)
--- NOTE | 2022-06-15 13:02 | PM.PREOP ---
Pre-operative Note COVID-19 Criteria for continued procedure: Expected advancement of disease process, Possibility delay results in more complex future surgery or treatment, Deterioration of the patient's condition or overall health, Delay expected to result in less-positive ultimate med/surg outcome and Non-surgical alternatives not available or appropriate per current SOC Interval Note History & Physical reviewed/Exam performed by Physician: Yes Changes to H&P: No
[2022-06-15] MEDS: CEFAZOLIN VIAL 1 GM in SODIUM CHLORIDE 0.9% 100 ML IV (13:45)
[2022-06-15] MEDS: CEFAZOLIN 2 GM/100 ML PREMIX 100 ML IV (13:45)
[2022-06-15] MEDS: ACETAMINOPHEN IV 1,000 MG/100 ML VIAL 400 MG IV (13:45)
--- NOTE | 2022-06-15 14:11 | SUR.OPER ---
Lithotomy on padded OR bed, head on pillow, Wedge positioner in place per Anesthesia. Left arm secured on padded arm boards at <90 degrees abduction with gel pad under arm and blanket for support. Right arm padded with gel pad and tucked at patients side. Legs secured in padded yellow fins stirrups.
[2022-06-15] MEDS: WATER FOR INJECTION,STERILE 20 ML, mitoMYcin 20 MG INTRAVESIC (14:25)
[2022-06-15] MEDS: TRANEXAMIC ACID 1,000 MG in SODIUM CHLORIDE 0.9% 100 ML 200 MG IV (14:27)
--- NOTE | 2022-06-15 14:36 | PM.OP.1 ---
Operative Date/Time/Diagnoses Date of procedure: 06/15/22 Time of procedure: 14:36 Pre-op diagnosis: 1. Bladder neoplasm. Post-op diagnosis: same Procedure & Clinicians Procedure: 1. Cystoscopy/ Transurethral resection of bladder neoplasm (greater than 5 cm). 2. Cystoscopy/installation mitomycin-C (20 mg). Same procedure as scheduled: Yes Indications: 1. Large bladder neoplasm. 2. History of hematuria. Surgeon: Jay Prado Click Yes if Unassisted: Yes Anesthesia Type: General Operative Notes Findings: 1. Urethra-normal caliber without annular stricture or lesion. 2. External sphincter-coapted with normal overlying urothelium. 3. Prostate 4.5+ cm length with moderately obstructing lateral lobes. The posterior bladder neck interface with prostate appeared to have a bullous type deformity suggesting a possible deeper process. 4. Large, partially necrotic neoplasm with a geographic footprint extending from at least the mid trigone toward the right along the floor. The orifice was not identified pre resection, during resection, or post resection. The tumor extended posteriorly at least retirement to the curvature of the posterior wall. Superiorly extended well up the right lateral wall, at least 2/3 of the distance. That portion of the tumor most superior and anterior could not be safely resected. The tumor then further seemed to involve the right and posterior bladder neck and prostate. Deep inadequate resection was taken with findings of mixed solid and very vascular papillary elements. The neoplasm was not resectable in its entirety due to extent and depth and specifics of anatomic location as described above. Closure Type: not applicable Specimen(s): other (Multiple bladder TUR specimens.) Applied: catheter (Three way 22 [place]er hematuria catheter.) Estimated Blood Loss (mL): 5 Blood products transfused: none Procedure in detail: The patient was positioned supine and administered general anesthesia. The lower abdomen, genitalia, and groin were then prepped and draped in sterile fashion the resectoscope was then passed the lower urinary tract with findings as described above. The left ureteral orifice was identified and photographed. The right ureteral orifice was never identified before, during, or following resection of the tumor. Several intraoperative pre intervention photographs were taken who inclusion in the permanent EHR. The working element was then inserted with a resection loop. TUR of the neoplasm was undertaken to a plane that should have been well within the muscularis. NOTE; the extent of the tumor along the superior lateral and superior lateral and anterior aspect of the bladder wall in combination with the patient's large body habitus made complete resection and advisable due to risk of possible hemorrhage and difficulty attaining hemostasis. All resected tissue was then irrigated from the bladder and submitted to pathology for routine gross and microscopic examination. Final hemostasis was attained with the cautery loop. The bladder was then left partially filled and a [address] hematuria catheter was inserted and the balloon inflated to 20 cc. The bladder contents were drained completely. A 20 cc solution containing 20 mg mitomycin C were then instilled into the bladder via Hernandez and a catheter plug inserted for anticipated 2 hour postop retention. The 3 way inflow was clamped off but remained connected to saline irrigation should it be required after postoperative mitomycin retention. The patient was then repositioned in supine, the catheter was secured to the upper thigh with a StatLock. The patient was then awakened, transferred to [facility], then transferred to recovery in stable condition. Complications: none Post-operative Condition: stable Disposition: PACU Plan for aftercare: 1. Retained mitomycin C x2 hours. 2. Discharge to home if outflow acceptably clear thereafter.
--- NOTE | 2022-06-15 17:21 | SUR.PHASEII ---
Per Physicians order at 1630, pts fay was drained of chemotherapeutic agent from bladder into bag. Approx. 300mls were drained. Fluid was clear and purple tinged. Three way cath port was capped per order. Catheter tubing was secured with statlock and tape with some small amount of slack allowed. Large bag attached per pt request. Pt was provided a leg bag for use at home. Pt and his was instructed how to change, clean and care for bag. Pt denied pain and tolerated procedure well.
== END 2022-06-15 17:08 | disposition home or self-care (01) ==
LOC: OR 10:19 → AC 10:19 → ICU 13:54 → AC 14:10
PROVIDERS: PCP Family Medicine; Referring Provider Specialist; Visit Provider Specialist
PROC: 0TBB8ZZ Excision of Bladder, Via Natural or Artificial Opening Endoscopic (ICD-10-PCS; CPT 52240; principal; 2022-06-15 11:45)
PROC: 3E1K78Z Irrigation of Genitourinary Tract using Irrigating Substance, Via Natural or Artificial Opening (ICD-10-PCS; CPT 51700; 2022-06-15 11:45)
DX: C67.8 Malignant neoplasm of overlapping sites of bladder (principal); Z87.440 Personal history of urinary (tract) infections; Z87.442 Personal history of urinary calculi; N40.1 Benign prostatic hyperplasia with lower urinary tract symptoms; N13.8 Other obstructive and reflux uropathy; Z20.822 Contact with and (suspected) exposure to COVID-19
CPT/HCPCS: 52240; 82962; 87635; C9803; J0131; J0330; J0690; J1100; J2250; J2405; J2704; J3010; J9280

== ENCOUNTER → 2022-07-16 08:36 | Outpatient (CLI) | payer OTHER, SELFPAY ==
[2022-06-16 09:58] VITALS: BMI 42.3
--- NOTE | 2022-07-16 08:38 | DI.CT.S_ITS ---
PROCEDURE: CT CHEST W CON INDICATIONS: Malignant neoplasm of bladder/stat lab eo TECHNIQUE: After the administration of intravenous contrast, 5 mm thick sections acquired from the pulmonary apices to the posterior costophrenic angles. 1 mm axial lung, 5 mm thick coronal and sagittal reformats and 7 mm axial MIP were acquired. For radiation dose reduction, the following was used: automated exposure control, adjustment of mA and/or kV according to patient size. COMPARISON: None. FINDINGS: Image quality: Excellent. Lungs and pleura: No acute air space opacities. No pleural effusions or pneumothorax. Central and peripheral airways are patent and normal in caliber. Mediastinum: Heart size is normal. No pericardial effusion. No mediastinal or hilar adenopathy by size criteria. Thoracic aorta and central pulmonary arteries are normal in size. Esophagus is normal in caliber. No hiatal hernia. Bones and chest wall: No suspicious bony lesions. No vertebral body compression fractures. No axillary or supraclavicular adenopathy by size criteria. Thyroid gland is within normal limits . Abdomen: Visualized upper abdominal solid organs appear normal. Gastric lap band is present. Upper abdominal bowel loops are normal in caliber. IMPRESSION: 1. No acute process. 2. No evidence of metastatic disease. Dictated by: Ester Carreon M.D. on 07/16/2022 at 12:12 Transcribed by: LAURA on 07/16/2022 at 12:14 Approved by: Ester Carreon M.D. on 07/16/2022 at 16:53
[2022-07-16 09:16] LABS: Estimated Glomerular Filt Rate > 60 mL/min (>60)
== END ==
PROVIDERS: Specialist; PCP Family Medicine; Referring Provider Internal Medicine Hematology & Oncology; Visit Provider Internal Medicine Hematology & Oncology
DX: C67.9 Malignant neoplasm of bladder, unspecified (principal)
CPT/HCPCS: 36415; 71260; 82565; Q9967

== ENCOUNTER 2022-07-28 08:23 | Day surgery (SDC) | payer OTHER, SELFPAY ==
[2022-06-16 09:58] VITALS: BMI 42.3
[2022-07-28] VITALS (9 sets, daily range): BP systolic 84–158; BP diastolic 47–88; PULSE 85–110; RESP 12–20; TEMP 36.1–36.7; O2SAT 96–100; BMI 43.0
[2022-07-28] MEDS: LACTATED RINGERS 1,000 ML 42 ML IV ×2 (09:10→11:15)
--- NOTE | 2022-07-28 09:22 | PM.PREOP ---
Pre-operative Note COVID-19 COVID-19 status: Not tested Interval Note History & Physical reviewed/Exam performed by Physician: Yes Changes to H&P: No ASA Class (for procedural sedation): III
[2022-07-28] MEDS: CEFAZOLIN VIAL 3 GM in SODIUM CHLORIDE 0.9% 100 ML IV (09:53)
--- NOTE | 2022-07-28 10:16 | SUR.OPER ---
Supine on padded OR bed, head on gel doughnut, arms secured on padded arm boards at <90 degrees abduction, legs uncrossed, safety belt at thigh, tape over blanket over lower legs.
[2022-07-28] MEDS: LIDOCAINE 1% 20 ML, EPINEPHrine 0.2 MG INJ (10:28)
--- NOTE | 2022-07-28 10:53 | DI.RAD.S_ITS ---
PROCEDURE: XR CHEST 1V INDICATIONS: INNER OP TECHNIQUE: One view of the chest was acquired. COMPARISON: None. FINDINGS: Fluoroscopic guidance utilized for an operative procedure. IMPRESSION: Fluoroscopic guidance utilized for an operative procedure. Dictated by: Kunal Mcknight M.D. on 07/28/2022 at 11:12 Approved by: Kunal Mcknight M.D. on 07/28/2022 at 11:13
--- NOTE | 2022-07-28 10:59 | PM.OP.1 ---
Operative Date/Time/Diagnoses Date of procedure: 07/28/22 Time of procedure: 10:59 Pre-op diagnosis: Bladder cancer Post-op diagnosis: same Procedure & Clinicians Procedure: Port-A-Cath Same procedure as scheduled: Yes Surgeon: Jaret Colón Operative Notes Prosthetic devices, grafts, tissues, transplants, or devices: The patient was brought to the operating room, placed on the table in the supine position with the arms tucked. Ancef was administered. Anesthesia was induced via LMA. A time-out was performed. The right chest and neck were prepped and draped in the usual fashion. An ultrasound was used to identify the right internal jugular vein. The vein was noted to be patent. An image was saved and printed and placed in the chart. The right internal jugular vein was accessed via the Seldinger technique under ultrasound guidance. The guidewire was inserted into the superior vena cava. C-arm was used to confirm proper position of the guidewire in the superior vena cava and no ectopy was noted. The needle was removed and the wire was clamped to the drape. Next, a port pocket was created just inferior to the medial clavicle using a 15 blade scalpel. Dissection was carried down to the pectoral fascia. A subcutaneous pocket was created using a combination of cautery and blunt dissection. Next, the port which was primed with injectable saline, was secured to the fascia with 3-0 PDS sutures left untied and clamped. The neck incision was extended with an 11 blade scalpel to approximately 5 mm. The dilator and peel-away sheath were inserted over the wire without resistance. The catheter was passed from the neck incision to the chest incision in the subcutaneous tissue using the tunnelling device. The wire and dilator were then removed and the catheter inserted through the peel-away sheath to deliver it into the superior vena cava. The depth of the device was checked using the C-arm and the tip of the device was noted to be in the distal superior vena cava. The exterior portion of the catheter was then trimmed and attached to the port using the strain relief collar. A final image showed good position of the catheter with no kinks. The port was then tucked into the subcutaneous pocket and the sutures were tied to secure the device. The port was then accessed using the Boggs needle and it was noted that the device kathy and flushed easily without resistance. Approximately 4 mL of heparinized saline were injected into the device. The skin incisions were closed with 3-0 Vicryl and 4-0 Monocryl. Steri-Strips were applied patient was awakened and brought to recovery room EBL: 5 mL Ultrasound: The right internal jugular vein was patent. The right carotid artery was visualized adjacent to the vein. Venipuncture was visualized in real-time using the ultrasound. Fluoroscopy: The device was positioned appropriately with the distal end of the catheter near the atriocaval junction. There were no kinks in the catheter. Post-operative Condition: stable Disposition: PACU
--- NOTE | 2022-07-28 11:00 | DI.RAD.S_ITS ---
PROCEDURE: XR CHEST 1V INDICATIONS: POST OP TRUONG CATH TECHNIQUE: One view of the chest was acquired. COMPARISON: [facility], CR, XR CHEST 1V, 07/28/2022, 10:35. FINDINGS: Surgical changes and devices: Tip of the right chest port catheter projects near the superior cavoatrial junction. Lungs and pleura: Lungs are clear. No pleural effusions or pneumothorax. Mediastinum: Mediastinal contours appear normal. Heart size is normal. Bones and chest wall: No suspicious bony lesions. Overlying soft tissues appear unremarkable. IMPRESSION: Tip of the right chest port catheter projects near the superior cavoatrial junction. Dictated by: Kole Little M.D. on 07/28/2022 at 14:47 Approved by: Kole Little M.D. on 07/28/2022 at 14:50
== END 2022-07-28 11:59 | disposition home or self-care (01) ==
PROVIDERS: PCP Family Medicine; Referring Provider Surgery; Visit Provider Surgery
PROC: (CPT 36561; principal; 2022-07-28 09:45)
DX: C67.9 Malignant neoplasm of bladder, unspecified (principal); E11.9 Type 2 diabetes mellitus without complications; Z79.84 Long term (current) use of oral hypoglycemic drugs; G47.33 Obstructive sleep apnea (adult) (pediatric)
CPT/HCPCS: 36561; 71045; 76000; C1788; J0171; J0690; J1170; J1644; J1885; J2405; J2704

== ENCOUNTER → 2022-07-30 08:40 | Outpatient (CLI) | payer OTHER, SELFPAY ==
[2022-06-16 09:58] VITALS: BMI 42.3
--- NOTE | 2022-07-30 | DI.ECHO.S_ITS ---
[facility]---------+ [facility] +---------+ : : [address] : : : : [id number] : : : : Phone: [phone]+ Echocardiogram Report + + :Name: MAGGIE SALDANA Study Date: 07/30/2022 Height: 72 in : :[facility] ReadingLocation: Weight: 317 lb : : Gender: Male BSA: 2.6 m2 : :: 1955 Age: 66 yrs BP: 151/94 mmHg: :Reason For Study: CARDIOTOXIC DRUG THERAPY : :Ordering Physician: SIDDHARTHA MCDOWELL : : Performed By: Tomasa Portillo : :Referring: SIDDHARTHA MCDOWELL : + + Interpretation Summary 1) Normal left ventricular thickness, size, wall motion, and systolic function (EF 60-65%). 2) Borderline enlarged right ventricle with normal function. 3) No significant valvular abnormalities. 4) Compared to the Echo done 05/06/2018, no significant change. Procedure: A two-dimensional transthoracic echocardiogram with color flow and Doppler was performed. The study quality was technically difficult. A contrast injection of Definity was performed to improve assessment of LV function. Comparison is made with the echocardiogram of 05/06/2018. The patient was in sinus rhythm with heart rates between 73-95 bpm during the exam. Left Ventricle: The left ventricle is normal in size and wall thickness. The ejection fraction is estimated to be 60-65%. Left ventricular systolic function appears normal without focal wall motion abnormalities. Diastolic parameters suggest a relaxation abnormality of the left ventricle, consistent with probable normal filling pressures. Right Ventricle: The right ventricle is borderline dilated. The right ventricular systolic function is normal. Atria: The left atrial size is normal. Right atrial size is normal. There is no Doppler evidence for an interatrial shunt. Mitral Valve: The mitral valve is normal in structure and function. There is trace mitral regurgitation. Aortic Valve: The aortic valve is trileaflet. The aortic valve opens well. There is no aortic valve stenosis. There is no aortic regurgitation. Tricuspid Valve: The tricuspid valve is normal in structure and function. There is trace tricuspid regurgitation. Pulmonary artery pressures cannot be estimated because of the lack of a measurable TR jet velocity. Pulmonic Valve: The pulmonic valve is not well visualized. There is no pulmonic valvular regurgitation. Great Vessels: The aortic root is normal size. The ascending aorta is at the upper limits of normal in size. The IVC is of normal diameter and collapses greater than 50% with a sniff. This suggests a low right atrial pressure of 3 mm Hg. Pericardium/ Pleura There is no pericardial effusion. There is no pleural effusion. MMode/2D Measurements & Calculations LVIDd: 5.2 cm LVOT diam: 2.7 cm LVIDs: 3.1 cm Ao root diam: 3.5 cm FS: 39.3 % asc Aorta Diam: 3.7 cm IVSd: 0.80 cm Ao Arch Diam (Prox Trans): 3.0 cm LVPWd: 0.89 cm LV cardona. diameter/BSA (cm/m^2): 2.0 LV sys. diameter/BSA (cm/m^2): 1.2 LA A2 area: 26.3 cm2 RA long axis: 5.2 cm LA A4 area: 14.9 cm2 RA area: 16.2 cm2 LA length (vol): 6.1 cm RA vol: 42.5 ml LA vol: 54.1 ml RA : 16.4 ml/m2 LA vol index: 20.9 ml/m2 IVC diam: 2.0 cm RVD1 (basal): 4.1 cm RVD2 (mid): 3.5 cm TAPSE: 2.2 cm Doppler Measurements & Calculations Ao V2 max: 149.1 cm/sec LVOT Max Anderson: 125.7 cm/sec Ao V2 mean: 112.9 cm/sec LV V1 max P.3 mmHg Ao max P.9 mmHg LV V1 VTI: 25.1 cm Ao mean P.5 mmHg AZALIA(I,D): 4.8 cm2 Ao V2 VTI: 28.8 cm AZALIA(V,D): 4.7 cm2 sev ratio: 0.87 AZALIA indexed to BSA (cm^2/m^2): 1.9 MV E max anderson: 68.3 cm/sec PA V2 max: 94.6 cm/sec MV A max anderson: 57.3 cm/sec PA V2 mean: 67.3 cm/sec MV E/A: 1.2 PA mean P.0 mmHg Med Peak E' Anderson: 7.0 cm/sec E/E' med: 9.8 Lat Peak E' Anderson: 13.2 cm/sec E/E' lat: 5.2 E/e' average: 7.5 MV dec time: 0.20 sec [facility] 138.8 ml Reading Physician:01:40 PM
== END ==
PROVIDERS: PCP Family Medicine; Referring Provider Internal Medicine Hematology & Oncology; Visit Provider Internal Medicine Hematology & Oncology
DX: C67.9 Malignant neoplasm of bladder, unspecified (principal); Z51.81 Encounter for therapeutic drug level monitoring; Z79.899 Other long term (current) drug therapy
CPT/HCPCS: C8929; Q9957